=== PATIENT | female | born 1950 | race African-American/Black ===

== ENCOUNTER 2020-12-02 15:42 | Inpatient (IN) | payer OTHER ==
[2020-12-02 17:18] LABS: BASO % 0.4 % (0-2.0); EOS % 0.4 % (0-4.5); HEMOGLOBIN 11.4 GM/dL (10.7-15.3); MCH 30.6 pg (25.7-33.7); MCHC 33.6 g/dl (32.0-36.0); MEAN CELL VOLUME 91.1 fl (80-96); MEAN PLT VOLUME 8.1 fl (7.5-11.1); MONO % 11.6 % (3.8-10.2); NEUT % 65.6 % (42.8-82.8); PLATELET COUNT 376 K/MM3 (134-434); RBC 3.74 M/mm3 (3.60-5.2); RDW 13.9 % (11.6-15.6); WHITE BLOOD COUNT 7.4 K/mm3 (4.0-10.0)
[2020-12-02 17:49] LABS: ALBUMIN 2.9 g/dl (3.4-5.0); BLOOD UREA NITROGEN 25.6 mg/dL (7-18)
[2020-12-02 17:52] LABS: EPI CELLS 34 /uL (0-25.1); HYALINE CASTS 1 /uL (0-3.1); PH,URINE 5.5 (5.0-8.0); URINE APPEARANCE CLOUDY; URINE BACTERIA >9,000 /uL (0-1359); URINE BILIRUBIN NEGATIVE (NEGATIVE); URINE COLOR YELLOW; URINE GLUCOSE (UA) NEGATIVE (NEGATIVE); URINE KETONE TRACE (NEGATIVE); URINE LEUK ESTERASE 1+ (NEGATIVE); URINE NITRITE NEGATIVE (NEGATIVE); URINE PROTEIN TRACE (NEGATIVE); URINE WBC 12 /uL (0-25.8)
[2020-12-02 17:54] LABS: BILIRUBIN,TOTAL 0.5 mg/dL (0.2-1); TOT PROT 6.6 g/dl (6.4-8.2)
[2020-12-02] MEDS ORDERED: CEFTRIAXONE 1,000 MG in DEXTROSE 5%-WATER - 50 ML IVPB ONE (18:05)
[2020-12-02] MEDS ORDERED: CEFTRIAXONE 1 GM/50 ML BAG ONE (18:25)
[2020-12-03 08:09] LABS: BASO % 0.7 % (0-2.0); EOS % 1.5 % (0-4.5); HEMATOCRIT 34.2 % (32.4-45.2); HEMOGLOBIN 11.2 GM/dL (10.7-15.3); LYMPH % 29.6 % (8-40); MCH 29.9 pg (25.7-33.7); MCHC 32.7 g/dl (32.0-36.0); MEAN CELL VOLUME 91.6 fl (80-96); MEAN PLT VOLUME 7.9 fl (7.5-11.1); MONO % 11.3 % (3.8-10.2); NEUT % 56.9 % (42.8-82.8); PLATELET COUNT 372 K/MM3 (134-434); RBC 3.73 M/mm3 (3.60-5.2); RDW 13.6 % (11.6-15.6); WHITE BLOOD COUNT 6.2 K/mm3 (4.0-10.0)
[2020-12-03 08:25] LABS: CALCIUM 10.2 mg/dL (8.5-10.1)
[2020-12-03 08:27] LABS: ALBUMIN 2.9 g/dl (3.4-5.0); BLOOD UREA NITROGEN 18.9 mg/dL (7-18)
[2020-12-03 08:29] LABS: BILIRUBIN,TOTAL 0.6 mg/dL (0.2-1); TOT PROT 6.5 g/dl (6.4-8.2)
[2020-12-03 08:30] LABS: CREATININE 0.7 mg/dL (0.55-1.3)
[2020-12-03] MEDS ORDERED: ESCITALOPRAM OXALATE 10 MG TABLET PO SCH (10:00)
[2020-12-03] MEDS ORDERED: CEFTRIAXONE 1 GM in DEXTROSE 5%-WATER - 50 ML IVPB SCH (10:00)
[2020-12-03] MEDS ORDERED: cefTRIAXone SODIUM 1 GM VIAL ONE (10:30)
[2020-12-03] MEDS ORDERED: DEXTROSE 5%-WATER - 50 ML IVPB ONE (10:30)
[2020-12-03] MEDS ORDERED: ASPIRIN 81 MG CHEWABLE TABLETS PO SCH (11:45)
[2020-12-03] MEDS: hydrALAZINE HCL 50 MG TABLET (FP) PO SCH ×2 (13:59→21:44)
[2020-12-03] MEDS: DEXTROSE 5%-0.45% SALINE 1,000 ML IV SCH ×2 (20:43→20:44)
[2020-12-03] MEDS ORDERED: LABETALOL HCL 200 MG TABLET (FP) PO SCH (22:00)
[2020-12-03] MEDS ORDERED: ATORVASTATIN CA 40 MG TABLET (FP) PO SCH (22:00)
[2020-12-04] MEDS ORDERED: DEXTROSE 5%-0.45% SALINE 1,000 ML IV SCH (01:44)
[2020-12-04] MEDS: hydrALAZINE HCL 50 MG TABLET (FP) PO SCH ×3 (05:30→21:51)
[2020-12-04] MEDS ORDERED: PATIENT'S OWN MEDICATION (NON-FORMULARY) (Hydralazine Hcl [Hydralazine Hcl] 100 MG) PO SCH (06:00)
[2020-12-04 06:28] LABS: BASO % 0.4 % (0-2.0); HEMATOCRIT 35.1 % (32.4-45.2); HEMOGLOBIN 11.7 GM/dL (10.7-15.3); LYMPH % 27.1 % (8-40); MCH 30.6 pg (25.7-33.7); MCHC 33.4 g/dl (32.0-36.0); MEAN CELL VOLUME 91.6 fl (80-96); MEAN PLT VOLUME 7.9 fl (7.5-11.1); MONO % 11.1 % (3.8-10.2); NEUT % 60.4 % (42.8-82.8); PLATELET COUNT 363 K/MM3 (134-434); RBC 3.84 M/mm3 (3.60-5.2); RDW 13.7 % (11.6-15.6); WHITE BLOOD COUNT 6.7 K/mm3 (4.0-10.0)
[2020-12-04 06:45] LABS: ALBUMIN 2.8 g/dl (3.4-5.0); BLOOD UREA NITROGEN 18.8 mg/dL (7-18); CALCIUM 10.1 mg/dL (8.5-10.1)
[2020-12-04 06:48] LABS: CREATININE 0.6 mg/dL (0.55-1.3)
[2020-12-04 06:50] LABS: BILIRUBIN,TOTAL 0.6 mg/dL (0.2-1); TOT PROT 6.4 g/dl (6.4-8.2)
[2020-12-04] MEDS ORDERED: METOPROLOL TARTRATE 5 MG/5 ML VIAL IVPUSH PRN (09:30)
[2020-12-04] MEDS ORDERED: PATIENT'S OWN MEDICATION (NON-FORMULARY) (Losartan Potassium [Cozaar] 100 MG) PO SCH (10:00)
[2020-12-04] MEDS ORDERED: LOSARTAN POTASSIUM 50 MG TABLET PO SCH (10:00)
[2020-12-04] MEDS: ASPIRIN 81 MG CHEWABLE TABLETS PO SCH (10:03)
[2020-12-04] MEDS: LOSARTAN POTASSIUM 50 MG TABLET PO SCH (10:04)
[2020-12-04] MEDS: LABETALOL HCL 200 MG TABLET (FP) PO SCH ×2 (10:04→21:52)
[2020-12-04] MEDS: ESCITALOPRAM OXALATE 10 MG TABLET PO SCH (10:04)
[2020-12-04] MEDS ORDERED: cefTRIAXone SODIUM 1 GM VIAL ONE (10:05)
[2020-12-04] MEDS ORDERED: DEXTROSE 5%-WATER - 50 ML IVPB ONE (10:06)
[2020-12-04] MEDS: CEFTRIAXONE 1 GM in DEXTROSE 5%-WATER - 50 ML IVPB SCH (10:13)
[2020-12-04] MEDS: DEXTROSE 5%-0.45% SALINE 1,000 ML IV SCH (12:45)
[2020-12-04] MEDS: VANCOMYCIN 1 GRAM (PRE-DOCKED) 1,000 MG/250 ML BAG IVPB SCH (14:11)
[2020-12-04] MEDS ORDERED: hydrALAZINE HCL 20 MG/ML VIAL IVPB PRN (14:43)
[2020-12-04] MEDS: ATORVASTATIN CA 40 MG TABLET (FP) PO SCH (21:52)
[2020-12-05] MEDS: VANCOMYCIN 1 GRAM (PRE-DOCKED) 1,000 MG/250 ML BAG IVPB SCH (01:12)
[2020-12-05] MEDS: DEXTROSE 5%-0.45% SALINE 1,000 ML IV SCH ×2 (01:14→18:20)
[2020-12-05] MEDS: hydrALAZINE HCL 50 MG TABLET (FP) PO SCH ×3 (05:46→21:33)
[2020-12-05 06:48] LABS: BASO % 0.7 % (0-2.0); EOS % 1.3 % (0-4.5); HEMATOCRIT 31.4 % (32.4-45.2); HEMOGLOBIN 10.6 GM/dL (10.7-15.3); LYMPH % 35.5 % (8-40); MCH 30.8 pg (25.7-33.7); MCHC 33.9 g/dl (32.0-36.0); MEAN CELL VOLUME 90.9 fl (80-96); MEAN PLT VOLUME 7.9 fl (7.5-11.1); MONO % 9.5 % (3.8-10.2); PLATELET COUNT 379 K/MM3 (134-434); RBC 3.46 M/mm3 (3.60-5.2); RDW 13.4 % (11.6-15.6); WHITE BLOOD COUNT 5.7 K/mm3 (4.0-10.0)
[2020-12-05 07:08] LABS: CALCIUM 9.4 mg/dL (8.5-10.1)
[2020-12-05 07:09] LABS: ALBUMIN 2.5 g/dl (3.4-5.0); BLOOD UREA NITROGEN 16.5 mg/dL (7-18)
[2020-12-05 07:12] LABS: CREATININE 0.7 mg/dL (0.55-1.3)
[2020-12-05 07:13] LABS: BILIRUBIN,TOTAL 0.4 mg/dL (0.2-1); TOT PROT 5.8 g/dl (6.4-8.2)
[2020-12-05] MEDS ORDERED: cefTRIAXone SODIUM 1 GM VIAL ONE (09:52)
[2020-12-05] MEDS ORDERED: DEXTROSE 5%-WATER - 50 ML IVPB ONE (09:52)
[2020-12-05] MEDS: CEFTRIAXONE 1 GM in DEXTROSE 5%-WATER - 50 ML IVPB SCH (10:21)
[2020-12-05] MEDS: LOSARTAN POTASSIUM 50 MG TABLET PO SCH (10:29)
[2020-12-05] MEDS: LABETALOL HCL 200 MG TABLET (FP) PO SCH ×2 (10:30→21:33)
[2020-12-05] MEDS: ESCITALOPRAM OXALATE 10 MG TABLET PO SCH (10:30)
[2020-12-05] MEDS: ASPIRIN 81 MG CHEWABLE TABLETS PO SCH (10:30)
[2020-12-05 16:29] VITALS: BMI 21.1
[2020-12-05] MEDS: ATORVASTATIN CA 40 MG TABLET (FP) PO SCH (21:33)
[2020-12-06] MEDS: hydrALAZINE HCL 50 MG TABLET (FP) PO SCH ×3 (06:14→21:11)
[2020-12-06] MEDS ORDERED: DEXTROSE 5%-WATER - 50 ML IVPB ONE (09:10)
[2020-12-06] MEDS ORDERED: cefTRIAXone SODIUM 1 GM VIAL ONE (09:10)
[2020-12-06] MEDS: CEFTRIAXONE 1 GM in DEXTROSE 5%-WATER - 50 ML IVPB SCH (10:24)
[2020-12-06] MEDS: LOSARTAN POTASSIUM 50 MG TABLET PO SCH (10:24)
[2020-12-06] MEDS: ESCITALOPRAM OXALATE 10 MG TABLET PO SCH (10:25)
[2020-12-06] MEDS: ASPIRIN 81 MG CHEWABLE TABLETS PO SCH (10:25)
[2020-12-06] MEDS: LABETALOL HCL 200 MG TABLET (FP) PO SCH ×2 (10:25→21:12)
[2020-12-06] MEDS: DEXTROSE 5%-0.45% SALINE 1,000 ML IV SCH (13:45)
[2020-12-06] MEDS: CLOPIDOGREL BISULFATE 75 MG TABLET (FP) PO SCH (17:57)
[2020-12-06] MEDS: ATORVASTATIN CA 40 MG TABLET (FP) PO SCH (21:12)
[2020-12-07] MEDS: DEXTROSE 5%-0.45% SALINE 1,000 ML IV SCH (03:04)
[2020-12-07] MEDS: hydrALAZINE HCL 50 MG TABLET (FP) PO SCH ×2 (05:32→13:52)
[2020-12-07] MEDS ORDERED: PT OWN MED DRAWER 7, Y5N ONE (09:55)
[2020-12-07] MEDS: ESCITALOPRAM OXALATE 10 MG TABLET PO SCH (09:57)
[2020-12-07] MEDS: LABETALOL HCL 200 MG TABLET (FP) PO SCH (09:57)
[2020-12-07] MEDS: CLOPIDOGREL BISULFATE 75 MG TABLET (FP) PO SCH (09:57)
[2020-12-07] MEDS: LOSARTAN POTASSIUM 50 MG TABLET PO SCH (09:57)
[2020-12-07] MEDS: ASPIRIN 81 MG CHEWABLE TABLETS PO SCH (09:58)
[2020-12-07] MEDS: CEPHALEXIN 250 MG/5 ML ORAL SUSPENSION PO SCH (10:05)
[2020-12-07] MEDS: hydrALAZINE HCL 20 MG/ML VIAL IVPB PRN (23:32)
[2020-12-08] MEDS: hydrALAZINE HCL 50 MG TABLET (FP) PO SCH ×4 (00:09→21:53)
[2020-12-08] MEDS: ATORVASTATIN CA 40 MG TABLET (FP) PO SCH ×2 (00:10→21:53)
[2020-12-08] MEDS: CEPHALEXIN 250 MG/5 ML ORAL SUSPENSION PO SCH ×3 (00:10→21:54)
[2020-12-08] MEDS: LABETALOL HCL 200 MG TABLET (FP) PO SCH ×3 (00:10→21:53)
[2020-12-08] MEDS: hydrALAZINE HCL 20 MG/ML VIAL IVPB PRN ×2 (06:16→13:32)
[2020-12-08] MEDS ORDERED: PT OWN MED DRAWER 7, Y5N ONE ×2 (09:26→21:14)
[2020-12-08] MEDS: LOSARTAN POTASSIUM 50 MG TABLET PO SCH (10:52)
[2020-12-08] MEDS: CLOPIDOGREL BISULFATE 75 MG TABLET (FP) PO SCH (10:52)
[2020-12-08] MEDS: ESCITALOPRAM OXALATE 10 MG TABLET PO SCH (10:52)
[2020-12-08] MEDS: ASPIRIN 81 MG CHEWABLE TABLETS PO SCH (10:53)
[2020-12-08 11:16] LABS: BASO % 0.7 % (0-2.0); EOS % 1.1 % (0-4.5); HEMATOCRIT 31.6 % (32.4-45.2); HEMOGLOBIN 10.6 GM/dL (10.7-15.3); MCH 30.6 pg (25.7-33.7); MCHC 33.5 g/dl (32.0-36.0); MEAN CELL VOLUME 91.2 fl (80-96); MEAN PLT VOLUME 7.2 fl (7.5-11.1); MONO % 8.4 % (3.8-10.2); NEUT % 60.8 % (42.8-82.8); PLATELET COUNT 422 K/MM3 (134-434); RBC 3.47 M/mm3 (3.60-5.2); RDW 13.3 % (11.6-15.6); WHITE BLOOD COUNT 6.1 K/mm3 (4.0-10.0)
[2020-12-08 11:36] LABS: ALBUMIN 2.5 g/dl (3.4-5.0); BLOOD UREA NITROGEN 12.6 mg/dL (7-18); CALCIUM 9.6 mg/dL (8.5-10.1)
[2020-12-08 11:39] LABS: CREATININE 0.6 mg/dL (0.55-1.3)
[2020-12-08 11:41] LABS: BILIRUBIN,TOTAL 0.4 mg/dL (0.2-1); TOT PROT 5.9 g/dl (6.4-8.2)
[2020-12-09] MEDS: hydrALAZINE HCL 50 MG TABLET (FP) PO SCH ×2 (05:14→14:47)
[2020-12-09] MEDS: ESCITALOPRAM OXALATE 10 MG TABLET PO SCH (09:06)
[2020-12-09] MEDS: LOSARTAN POTASSIUM 50 MG TABLET PO SCH (09:06)
[2020-12-09] MEDS: LABETALOL HCL 200 MG TABLET (FP) PO SCH (09:06)
[2020-12-09] MEDS: ASPIRIN 81 MG CHEWABLE TABLETS PO SCH (09:06)
[2020-12-09] MEDS: CLOPIDOGREL BISULFATE 75 MG TABLET (FP) PO SCH (09:06)
[2020-12-09] MEDS ORDERED: PT OWN MED DRAWER 7, Y5N ONE (09:10)
[2020-12-09] MEDS: CEPHALEXIN 250 MG/5 ML ORAL SUSPENSION PO SCH (09:12)
[2020-12-09] MEDS ORDERED: amLODIPine BESYLATE 2.5 MG TABLET (FP) PO SCH (10:00)
[2020-12-09 10:08] LABS: SARS-CoV-2 NAA Not Detected (Not Detected)
[2020-12-09 14:35] VITALS: BP 106/65; PULSE 79; TEMP 98.9
== END 2020-12-09 17:57 | DRG 45 ==
LOC: JER 15:42 → JERBED 19:17 → J8W 22:22 → J4S 12-04 01:15
PROVIDERS: ADMIT Internal Medicine; ATTEND Family Medicine
DX: I63.421 Cerebral infarction due to embolism of right anterior cerebral artery (principal); G93.41 Metabolic encephalopathy; N39.0 Urinary tract infection, site not specified; G30.9 Alzheimer's disease, unspecified; F02.80 Dementia in other diseases classified elsewhere, unspecified severity, without behavioral disturbance, psychotic disturbance, mood disturbance, and anxiety; I69.354 Hemiplegia and hemiparesis following cerebral infarction affecting left non-dominant side; E87.5 Hyperkalemia; E11.9 Type 2 diabetes mellitus without complications; D64.9 Anemia, unspecified; E78.5 Hyperlipidemia, unspecified; I10 Essential (primary) hypertension; Z20.822 Contact with and (suspected) exposure to COVID-19; R13.10 Dysphagia, unspecified; Z86.14 Personal history of Methicillin resistant Staphylococcus aureus infection
CPT/HCPCS: 36415; 70450-TC; 70551-TC; 71045-TC-FY; 80053; 80061; 81003; 82962; 83036; 83605; 83721; 83735; 84439; 84443; 84484; 85025; 87040; 87081; 87086; 93005; 93010; 93306-TC; 97161-GP; 99285-25; C9803; U0003; U0005

== ENCOUNTER 2021-02-13 18:53 | Inpatient (IN) | payer OTHER ==
[2021-02-13 22:12] LABS: BASO % 0.5 % (0-2.0); EOS % 0.4 % (0-4.5); HEMATOCRIT 32.6 % (32.4-45.2); HEMOGLOBIN 10.7 GM/dL (10.7-15.3); LYMPH % 14.4 % (8-40); MCH 28.9 pg (25.7-33.7); MCHC 32.8 g/dl (32.0-36.0); MEAN CELL VOLUME 88.2 fl (80-96); MEAN PLT VOLUME 7.9 fl (7.5-11.1); NEUT % 79.7 % (42.8-82.8); PLATELET COUNT 657 10^3/uL (134-434); RDW 15.4 % (11.6-15.6); WHITE BLOOD COUNT 11.6 K/mm3 (4.0-10.0)
[2021-02-13 22:20] LABS: INR 1.24 (0.83-1.09); PROTHROMBIN TIME (PATIENT) 14.9 SEC (9.7-13.0)
[2021-02-13 22:32] LABS: CALCIUM 8.8 mg/dL (8.5-10.1)
[2021-02-13 22:33] LABS: ALBUMIN 1.8 g/dl (3.4-5.0); BLOOD UREA NITROGEN 18.3 mg/dL (7-18)
[2021-02-13 22:36] LABS: CREATININE 0.6 mg/dL (0.55-1.3)
[2021-02-13 22:37] LABS: BILIRUBIN,TOTAL 0.4 mg/dL (0.2-1); TOT PROT 6.1 g/dl (6.4-8.2)
[2021-02-13] MEDS ORDERED: LABETALOL HCL 5 MG/1 ML (100MG/20 ML VIAL) IVPUSH ONE (22:51)
[2021-02-13] MEDS ORDERED: KCL 10 MEQ IVPB 10 MEQ/100 ML INFUS.BAG IVPB SCH (23:00)
[2021-02-13] MEDS ORDERED: KCL 10 MEQ IVPB 10 MEQ/100 ML INFUS.BAG IVPB ONE (23:01)
[2021-02-13] MEDS ORDERED: LABETALOL HCL 5 MG/1 ML (100MG/20 ML VIAL) ONE (23:01)
[2021-02-14] MEDS ORDERED: LOSARTAN POTASSIUM 50 MG TABLET PO SCH (11:00)
[2021-02-14] MEDS: amLODIPine BESYLATE 2.5 MG TABLET (FP) PO SCH (11:50)
[2021-02-14] MEDS: hydrALAZINE HCL 25 MG TABLET (FP) PO SCH ×2 (11:50→21:16)
[2021-02-14 12:03] LABS: ALBUMIN 1.8 g/dl (3.4-5.0); CALCIUM 8.9 mg/dL (8.5-10.1)
[2021-02-14 12:04] LABS: BLOOD UREA NITROGEN 21.2 mg/dL (7-18)
[2021-02-14 12:07] LABS: CREATININE 0.8 mg/dL (0.55-1.3)
[2021-02-14 12:08] LABS: BILIRUBIN,TOTAL 0.4 mg/dL (0.2-1); TOT PROT 5.8 g/dl (6.4-8.2)
[2021-02-14 13:06] LABS: EPI CELLS 5 /uL (0-25.1); HYALINE CASTS 11 /uL (0-3.1); URINE APPEARANCE TURBID; URINE BACTERIA >9,000 /uL (0-1359); URINE BILIRUBIN NEGATIVE (NEGATIVE); URINE COLOR YELLOW; URINE GLUCOSE (UA) NEGATIVE (NEGATIVE); URINE KETONE 1+ (NEGATIVE); URINE LEUK ESTERASE 3+ (NEGATIVE); URINE NITRITE POSITIVE (NEGATIVE); URINE PROTEIN 1+ (NEGATIVE); URINE RBC 65 /uL (0-23.9); URINE WBC 4256 /uL (0-25.8)
[2021-02-14] MEDS ORDERED: hydrALAZINE HCL 25 MG TABLET (FP) ONE (13:16)
[2021-02-14] MEDS ORDERED: amLODIPine BESYLATE 2.5 MG TABLET (FP) ONE (13:16)
[2021-02-14] MEDS ORDERED: LOSARTAN POTASSIUM 50 MG TABLET ONE (13:17)
[2021-02-14] MEDS: LOSARTAN POTASSIUM 50 MG TABLET PO SCH (13:34)
[2021-02-14] MEDS ORDERED: AMINO ACIDS 4.25%/D5W 1,000 ML IV SCH (14:00)
[2021-02-14] MEDS ORDERED: METOPROLOL TARTRATE 5 MG/5 ML VIAL IVPUSH PRN ×2 (16:36→16:38)
[2021-02-14] MEDS: POTASSIUM CHLORIDE 20 MEQ in AMINO ACIDS 4.25%/D5W 1,000 ML IV SCH (17:34)
[2021-02-14] MEDS ORDERED: METOPROLOL TARTRATE 5 MG/5 ML VIAL ONE (21:17)
[2021-02-15 09:43] LABS: BASO % 0.3 % (0-2.0); EOS % 0.6 % (0-4.5); HEMATOCRIT 28.6 % (32.4-45.2); HEMOGLOBIN 9.5 GM/dL (10.7-15.3); LYMPH % 15.6 % (8-40); MCH 28.9 pg (25.7-33.7); MCHC 33.2 g/dl (32.0-36.0); MEAN CELL VOLUME 86.9 fl (80-96); MEAN PLT VOLUME 7.7 fl (7.5-11.1); MONO % 7.2 % (3.8-10.2); NEUT % 76.3 % (42.8-82.8); PLATELET COUNT 581 10^3/uL (134-434); RBC 3.29 M/mm3 (3.60-5.2); RDW 14.8 % (11.6-15.6); WHITE BLOOD COUNT 10.8 K/mm3 (4.0-10.0)
[2021-02-15 10:07] LABS: CALCIUM 8.8 mg/dL (8.5-10.1)
[2021-02-15 10:10] LABS: CREATININE 0.7 mg/dL (0.55-1.3); MAGNESIUM 1.4 mg/dL (1.8-2.4); PHOSPHOROUS 2.4 mg/dL (2.5-4.9)
[2021-02-15] MEDS: amLODIPine BESYLATE 2.5 MG TABLET (FP) PO SCH (10:11)
[2021-02-15] MEDS: hydrALAZINE HCL 25 MG TABLET (FP) PO SCH ×2 (10:11→21:22)
[2021-02-15] MEDS: LOSARTAN POTASSIUM 50 MG TABLET PO SCH (10:11)
[2021-02-15] MEDS ORDERED: MAGNESIUM SULF 50% (8.12 MEQ/2 ML-1 GM VIAL) IVPB ONE (11:43)
[2021-02-15] MEDS ORDERED: POTASSIUM PHOSPHATE 30 MM in SODIUM CHLORIDE 500 ML IVPB ONE (13:00)
[2021-02-15 16:00] VITALS: BMI 18.6
[2021-02-15] MEDS: POTASSIUM CHLORIDE 20 MEQ in AMINO ACIDS 4.25%/D5W 1,000 ML IV SCH (16:12)
[2021-02-16 09:26] LABS: HEMATOCRIT 26.2 % (32.4-45.2); HEMOGLOBIN 8.7 GM/dL (10.7-15.3); MCH 29.2 pg (25.7-33.7); MCHC 33.3 g/dl (32.0-36.0); MEAN CELL VOLUME 87.7 fl (80-96); MEAN PLT VOLUME 7.7 fl (7.5-11.1); PLATELET COUNT 483 10^3/uL (134-434); RBC 2.99 M/mm3 (3.60-5.2); RDW 15.2 % (11.6-15.6); WHITE BLOOD COUNT 8.8 K/mm3 (4.0-10.0)
[2021-02-16 09:53] LABS: CALCIUM 8.7 mg/dL (8.5-10.1)
[2021-02-16 09:54] LABS: BLOOD UREA NITROGEN 22.7 mg/dL (7-18); MAGNESIUM 1.7 mg/dL (1.8-2.4)
[2021-02-16 09:57] LABS: CREATININE 0.5 mg/dL (0.55-1.3); PHOSPHOROUS 2.6 mg/dL (2.5-4.9)
[2021-02-16] MEDS: LOSARTAN POTASSIUM 50 MG TABLET PO SCH (09:59)
[2021-02-16] MEDS: amLODIPine BESYLATE 2.5 MG TABLET (FP) PO SCH (09:59)
[2021-02-16] MEDS: hydrALAZINE HCL 25 MG TABLET (FP) PO SCH ×2 (09:59→21:12)
[2021-02-16 10:01] LABS: IRON SERUM 19 ug/dL (50-175); TOTAL IRON BINDING CAPACITY 106 ug/dL (250-450)
[2021-02-16] MEDS ORDERED: PT OWN MED DRAWER 7, Y5N ONE (14:00)
[2021-02-16] MEDS: POTASSIUM CHLORIDE 20 MEQ in AMINO ACIDS 4.25%/D5W 1,000 ML IV SCH ×3 (14:07→18:18)
[2021-02-16] MEDS ORDERED: MAGNESIUM SULF 50% (8.12 MEQ/2 ML-1 GM VIAL) IVPB ONE (16:52)
[2021-02-16] MEDS ORDERED: IRON SUCROSE INJECTION 300 MG in SODIUM CHLORIDE 235 ML IVPB ONE (18:56)
[2021-02-17] MEDS: METOPROLOL TARTRATE 5 MG/5 ML VIAL IVPB PRN (10:14)
[2021-02-17] MEDS: LOSARTAN POTASSIUM 50 MG TABLET PO SCH (10:22)
[2021-02-17] MEDS: amLODIPine BESYLATE 2.5 MG TABLET (FP) PO SCH (10:22)
[2021-02-17] MEDS: hydrALAZINE HCL 25 MG TABLET (FP) PO SCH ×2 (10:22→21:32)
[2021-02-17 10:33] LABS: CALCIUM 8.6 mg/dL (8.5-10.1)
[2021-02-17 10:34] LABS: ALBUMIN 1.5 g/dl (3.4-5.0); BLOOD UREA NITROGEN 21.6 mg/dL (7-18); MAGNESIUM 2.1 mg/dL (1.8-2.4)
[2021-02-17 10:38] LABS: PHOSPHOROUS 2.1 mg/dL (2.5-4.9)
[2021-02-17 10:39] LABS: BILIRUBIN,TOTAL 0.3 mg/dL (0.2-1)
[2021-02-17 10:45] LABS: CREATININE 0.7 mg/dL (0.55-1.3)
[2021-02-17] MEDS: NAPH,MB-DB/K PH,MBDB POWDER PACKET PO SCH (13:10)
[2021-02-17] MEDS ORDERED: SODIUM PHOSPHATE - 20 MM in DEXTROSE 5%-WATER - 250 ML IVPB ONE (14:42)
[2021-02-17] MEDS: POTASSIUM CHLORIDE 20 MEQ in AMINO ACIDS 4.25%/D5W 1,000 ML IV SCH (18:16)
[2021-02-17] MEDS: NYSTATIN 100,000 UNIT/GM TOPICAL CREAM 15 GM TUBE TP SCH (21:33)
[2021-02-17] MEDS: hydrALAZINE HCL 20 MG/ML VIAL IM PRN (21:52)
[2021-02-18] MEDS: POTASSIUM CHLORIDE 20 MEQ in AMINO ACIDS 4.25%/D5W 1,000 ML IV SCH ×3 (04:41→17:42)
[2021-02-18] MEDS: hydrALAZINE HCL 20 MG/ML VIAL IM PRN (06:44)
[2021-02-18] MEDS: hydrALAZINE HCL 25 MG TABLET (FP) PO SCH ×2 (10:04→21:08)
[2021-02-18] MEDS: LOSARTAN POTASSIUM 50 MG TABLET PO SCH (10:04)
[2021-02-18] MEDS: amLODIPine BESYLATE 2.5 MG TABLET (FP) PO SCH (10:05)
[2021-02-18] MEDS: NAPH,MB-DB/K PH,MBDB POWDER PACKET PO SCH (10:05)
[2021-02-18] MEDS: NYSTATIN 100,000 UNIT/GM TOPICAL CREAM 15 GM TUBE TP SCH ×2 (10:05→21:12)
[2021-02-18] MEDS ORDERED: PT OWN MED DRAWER 7, Y5N ONE (16:51)
[2021-02-18] MEDS ORDERED: FAT EMULSION/OLIVE/SOY (CLINOLIPID) 250 ML EMULSION IV SCH (22:00)
[2021-02-19] MEDS: NAPH,MB-DB/K PH,MBDB POWDER PACKET PO SCH (10:24)
[2021-02-19] MEDS: amLODIPine BESYLATE 2.5 MG TABLET (FP) PO SCH (10:24)
[2021-02-19] MEDS: LOSARTAN POTASSIUM 50 MG TABLET PO SCH (10:24)
[2021-02-19] MEDS: NYSTATIN 100,000 UNIT/GM TOPICAL CREAM 15 GM TUBE TP SCH ×2 (10:24→21:22)
[2021-02-19] MEDS: hydrALAZINE HCL 25 MG TABLET (FP) PO SCH ×2 (10:24→21:22)
[2021-02-19 15:06] LABS: CALCIUM 8.9 mg/dL (8.5-10.1)
[2021-02-19 15:07] LABS: MAGNESIUM 1.5 mg/dL (1.8-2.4)
[2021-02-19 15:08] LABS: ALBUMIN 1.6 g/dl (3.4-5.0); BLOOD UREA NITROGEN 21.4 mg/dL (7-18)
[2021-02-19 15:10] LABS: CREATININE 0.4 mg/dL (0.55-1.3)
[2021-02-19 15:11] LABS: PHOSPHOROUS 2.1 mg/dL (2.5-4.9)
[2021-02-19 15:12] LABS: TOT PROT 5.5 g/dl (6.4-8.2)
[2021-02-19 15:13] LABS: BILIRUBIN,TOTAL 0.3 mg/dL (0.2-1)
[2021-02-19] MEDS ORDERED: MAGNESIUM SULF 50% (8.12 MEQ/2 ML-1 GM VIAL) IVPB ONE (15:51)
[2021-02-19] MEDS: POTASSIUM CHLORIDE 20 MEQ in AMINO ACIDS 4.25%/D5W 1,000 ML IV SCH (18:11)
[2021-02-20] MEDS ORDERED: PT OWN MED DRAWER 7, Y5N ONE (09:35)
[2021-02-20] MEDS: LOSARTAN POTASSIUM 50 MG TABLET PO SCH (09:44)
[2021-02-20] MEDS: hydrALAZINE HCL 25 MG TABLET (FP) PO SCH ×2 (09:44→21:07)
[2021-02-20] MEDS: NAPH,MB-DB/K PH,MBDB POWDER PACKET PO SCH (09:44)
[2021-02-20] MEDS: amLODIPine BESYLATE 2.5 MG TABLET (FP) PO SCH (09:44)
[2021-02-20] MEDS: METOPROLOL TARTRATE 5 MG/5 ML VIAL IVPB PRN (10:46)
[2021-02-20] MEDS: NYSTATIN 100,000 UNIT/GM TOPICAL CREAM 15 GM TUBE TP SCH ×2 (10:46→21:08)
[2021-02-20] MEDS ORDERED: GLUCAGON 1 MG KIT IVPUSH ONE (14:18)
[2021-02-20] MEDS ORDERED: GlUCAGON HUMAN RECOMBINANT 1 MG/VIAL IVPUSH ONE (14:45)
[2021-02-20] MEDS ORDERED: LABETALOL HCL 5 MG/1 ML (100MG/20 ML VIAL) IVPUSH ONE ×3 (14:45)
[2021-02-20] MEDS: POTASSIUM CHLORIDE 20 MEQ in AMINO ACIDS 4.25%/D5W 1,000 ML IV SCH (17:38)
[2021-02-20] MEDS: LABETALOL HCL 5 MG/1 ML (100MG/20 ML VIAL) IVPUSH SCH ×2 (19:51→19:52)
[2021-02-20] MEDS: POTASSIUM CHLORIDE 10 MEQ in AMINO ACIDS 4.25%/D5W 1,000 ML IVPB SCH (21:22)
[2021-02-20] MEDS ORDERED: FAT EMULSION/OLIVE/SOY/PHOSPHO 250 ML IV SCH (22:00)
[2021-02-20] MEDS ORDERED: FAT EMULSION/OLIVE/SOY (CLINOLIPID) 250 ML EMULSION IV SCH (22:00)
[2021-02-21] MEDS ORDERED: PT OWN MED DRAWER 7, Y5N ONE (10:12)
[2021-02-21 10:17] LABS: ALBUMIN 1.7 g/dl (3.4-5.0); BLOOD UREA NITROGEN 20.4 mg/dL (7-18); MAGNESIUM 1.6 mg/dL (1.8-2.4)
[2021-02-21 10:22] LABS: BILIRUBIN,TOTAL 0.3 mg/dL (0.2-1); TOT PROT 5.8 g/dl (6.4-8.2)
[2021-02-21] MEDS: NYSTATIN 100,000 UNIT/GM TOPICAL CREAM 15 GM TUBE TP SCH ×2 (10:32→21:12)
[2021-02-21] MEDS: amLODIPine BESYLATE 2.5 MG TABLET (FP) PO SCH (10:33)
[2021-02-21] MEDS: LOSARTAN POTASSIUM 50 MG TABLET PO SCH (10:33)
[2021-02-21] MEDS: POTASSIUM CHLORIDE 10 MEQ in AMINO ACIDS 4.25%/D5W 1,000 ML IVPB SCH ×2 (10:33→16:36)
[2021-02-21] MEDS: NAPH,MB-DB/K PH,MBDB POWDER PACKET PO SCH (10:33)
[2021-02-21] MEDS: hydrALAZINE HCL 25 MG TABLET (FP) PO SCH ×2 (10:33→21:12)
[2021-02-21 10:54] LABS: CREATININE 0.4 mg/dL (0.55-1.3)
[2021-02-21] MEDS ORDERED: LABETALOL HCL 5 MG/1 ML (100MG/20 ML VIAL) IVPUSH SCH (13:45)
[2021-02-22] MEDS: POTASSIUM CHLORIDE 10 MEQ in AMINO ACIDS 4.25%/D5W 1,000 ML IVPB SCH (01:13)
[2021-02-22 09:25] LABS: BASO % 0.2 % (0-2.0); EOS % 0.4 % (0-4.5); HEMATOCRIT 25.9 % (32.4-45.2); HEMOGLOBIN 8.8 GM/dL (10.7-15.3); LYMPH % 12.4 % (8-40); MCH 29.3 pg (25.7-33.7); MCHC 33.9 g/dl (32.0-36.0); MEAN CELL VOLUME 86.4 fl (80-96); MEAN PLT VOLUME 7.7 fl (7.5-11.1); MONO % 8.9 % (3.8-10.2); NEUT % 78.1 % (42.8-82.8); PLATELET COUNT 461 10^3/uL (134-434); RBC 2.99 M/mm3 (3.60-5.2); RDW 15.4 % (11.6-15.6); WHITE BLOOD COUNT 9.1 K/mm3 (4.0-10.0)
[2021-02-22 09:55] LABS: CREATININE 0.4 mg/dL (0.55-1.3)
[2021-02-22 09:57] LABS: ALBUMIN 1.6 g/dl (3.4-5.0); BLOOD UREA NITROGEN 22.4 mg/dL (7-18); CALCIUM 9.1 mg/dL (8.5-10.1)
[2021-02-22 09:58] LABS: MAGNESIUM 1.5 mg/dL (1.8-2.4)
[2021-02-22 10:01] LABS: BILIRUBIN,TOTAL 0.4 mg/dL (0.2-1); TOT PROT 5.5 g/dl (6.4-8.2)
[2021-02-22] MEDS: LOSARTAN POTASSIUM 50 MG TABLET PO SCH (10:14)
[2021-02-22] MEDS: amLODIPine BESYLATE 2.5 MG TABLET (FP) PO SCH (10:15)
[2021-02-22] MEDS: hydrALAZINE HCL 25 MG TABLET (FP) PO SCH ×2 (10:15→21:15)
[2021-02-22] MEDS: NAPH,MB-DB/K PH,MBDB POWDER PACKET PO SCH (10:15)
[2021-02-22] MEDS: NYSTATIN 100,000 UNIT/GM TOPICAL CREAM 15 GM TUBE TP SCH ×2 (10:15→21:16)
[2021-02-22] MEDS ORDERED: MAGNESIUM SULF 50% (8.12 MEQ/2 ML-1 GM VIAL) IVPB ONE (12:13)
[2021-02-22] MEDS ORDERED: MAGNESIUM OXIDE 400 MG TABLET (FP) PO ONE (13:15)
[2021-02-22 23:10] VITALS: BP 132/81; PULSE 105; TEMP 97.9
== END 2021-02-23 05:18 | DRG 421 ==
LOC: JER 18:53 → JERBED 22:55 → J8W 02-14 21:43
PROVIDERS: ADMIT Internal Medicine; ATTEND Family Medicine
PROC: 0DH63UZ Insertion of Feeding Device into Stomach, Percutaneous Approach (ICD-10-PCS; principal; 2021-02-20)
PROC: 3E0G36Z Introduction of Nutritional Substance into Upper GI, Percutaneous Approach (ICD-10-PCS; 2021-02-20)
PROC: 3E0336Z Introduction of Nutritional Substance into Peripheral Vein, Percutaneous Approach (ICD-10-PCS; 2021-02-20)
DX: R62.7 Adult failure to thrive (principal); G30.9 Alzheimer's disease, unspecified; Z68.1 Body mass index [BMI] 19.9 or less, adult; E87.6 Hypokalemia; R13.10 Dysphagia, unspecified; R53.2 Functional quadriplegia; E86.0 Dehydration; E43 Unspecified severe protein-calorie malnutrition; E46 Unspecified protein-calorie malnutrition; F02.80 Dementia in other diseases classified elsewhere, unspecified severity, without behavioral disturbance, psychotic disturbance, mood disturbance, and anxiety; I10 Essential (primary) hypertension; E11.9 Type 2 diabetes mellitus without complications; D72.829 Elevated white blood cell count, unspecified; E78.5 Hyperlipidemia, unspecified; I69.354 Hemiplegia and hemiparesis following cerebral infarction affecting left non-dominant side
CPT/HCPCS: 36415; 49440; 71045-TC-FY; 71250-TC; 74018-TC-FY; 74150-TC; 80048; 80053; 80061; 81003; 83540; 83550; 83735; 84100; 85025; 85027; 85610; 85730; 87086; 87186; 93005; 93010; 99285-25; C9803; J1756; U0003; U0005

== ENCOUNTER 2021-08-06 12:19 | Inpatient (IN) | payer OTHER ==
[2021-08-06] MEDS ORDERED: KETAMINE HCL 200 MG/20 ML VIAL ONE (12:30)
[2021-08-06] MEDS ORDERED: RAPID SEQUENCE INTUBATION KIT NR ONE (12:33)
[2021-08-06] MEDS ORDERED: SODIUM CHLORIDE 0.9% 500 ML INFUS.BAG IV ONE (12:37)
[2021-08-06] MEDS ORDERED: ACETAMINOPHEN 1000 MG/100 ML BAG IVPB ONE (12:38)
[2021-08-06] MEDS ORDERED: VANCOMYCIN 1 GM in D5W (PRE-DOCKED) 1,000 MG/250 ML IVPB ONE (12:38)
[2021-08-06] MEDS ORDERED: CEFEPIME HCL/D5W 2 GM/50 ML BAG IVPB ONE (12:38)
[2021-08-06 12:57] LABS: VENOUS BASE EXCESS 4.1 mmol/L (-2-2); VENOUS O2 SATURATION 47.1 % (70-80); VENOUS PCO2 58.4 mmHg (38-52); VENOUS PH 7.341 (7.310-7.410)
[2021-08-06 13:04] LABS: BASO % 0.4 % (0-2.0); EOS % 0.1 % (0-4.5); HEMATOCRIT 32.9 % (32.4-45.2); HEMOGLOBIN 9.7 GM/dL (10.7-15.3); LYMPH % 16.3 % (8-40); MCH 29.5 pg (25.7-33.7); MCHC 29.4 g/dl (32.0-36.0); MEAN CELL VOLUME 100.3 fl (80-96); MEAN PLT VOLUME 13.2 fl (7.5-11.1); MONO % 5.8 % (3.8-10.2); NEUT % 77.4 % (42.8-82.8); PLATELET COUNT 241 10^3/uL (134-434); RBC 3.28 M/mm3 (3.60-5.2); RDW 17.3 % (11.6-15.6); WHITE BLOOD COUNT 11.9 K/mm3 (4.0-10.0)
[2021-08-06] MEDS ORDERED: NOREPINEPHRINE BITARTRATE 4 MG/4 ML ML IV ONE ×2 (13:04→13:16)
[2021-08-06] MEDS ORDERED: ACETAMINOPHEN INJECTION 100 ML IVPB ONE (13:06)
[2021-08-06] MEDS ORDERED: AZITHROMYCIN IVPB 500 MG in DEXTROSE 5%-WATER - 250 ML IVPB ONE (13:08)
[2021-08-06 13:21] LABS: CHLORIDE 140 mmol/L (98-107)
[2021-08-06] MEDS: NOREPINEPHRINE BITARTRATE 16,000 MCG in SODIUM CHLORIDE 484 ML IV SCH (13:24)
[2021-08-06 13:25] LABS: ALBUMIN 1.9 g/dl (3.4-5.0); BLOOD UREA NITROGEN 101.6 mg/dL (7-18); CO2 33 mmol/L (21-32)
[2021-08-06] MEDS ORDERED: INSULIN REGULAR HUMAN 100 UNITS/ML *VIAL IVPUSH ONE (13:25)
[2021-08-06 13:28] LABS: SGOT/AST 30 U/L (15-37); SGPT/ALT 25 U/L (13-61)
[2021-08-06] MEDS ORDERED: DEXTROSE 50%-WATER - 25 GM/50 ML VIAL IVPUSH PRN (13:28)
[2021-08-06 13:29] LABS: BILIRUBIN,TOTAL 0.2 mg/dL (0.2-1); TOT PROT 6.4 g/dl (6.4-8.2)
[2021-08-06] MEDS ORDERED: SODIUM CHLORIDE 0.9%/KCL 20 MEQ/1,000 ML INFUS.BAG IV SCH ×2 (13:30→19:30)
[2021-08-06] MEDS ORDERED: INSULIN REGULAR 100 UNITS in SODIUM CHLORIDE 99 ML IVPB SCH (13:30)
[2021-08-06 13:31] LABS: ALK PHOS 176 U/L (45-117)
[2021-08-06] MEDS ORDERED: CEFEPIME 2 GM/100 ML BAG IVPB ONE (13:32)
[2021-08-06] MEDS ORDERED: VANCOMYCIN 1 GRAM (PRE-DOCKED) 1,000 MG/250 ML BAG IVPB ONE (13:32)
[2021-08-06] MEDS ORDERED: AZITHROMYCIN IVPB 500 MG/250 ML BAG IVPB ONE (13:32)
[2021-08-06 13:54] LABS: ANION GAP 0 MMOL/L (8-16); SODIUM 173 mmol/L (136-145)
[2021-08-06 14:03] LABS: GLUCOSE,RANDOM 875 mg/dL (74-106)
[2021-08-06 14:26] LABS: EPI CELLS >36 /uL (0-25.1); HYALINE CASTS 1578 /uL (0-3.1); PH,URINE 7.5 (5.0-8.0); URINE APPEARANCE TURBID; URINE BACTERIA >9,000 /uL (0-1359); URINE BILIRUBIN NEGATIVE (NEGATIVE); URINE COLOR YELLOW; URINE GLUCOSE (UA) TRACE (NEGATIVE); URINE KETONE TRACE (NEGATIVE); URINE LEUK ESTERASE 3+ (NEGATIVE); URINE NITRITE NEGATIVE (NEGATIVE); URINE PROTEIN 2+ (NEGATIVE); URINE UROBILINOGEN 0.2 mg/dL (0.2-1.0); URINE WBC 23613 /uL (0-25.8)
[2021-08-06 15:31] LABS: CHLORIDE 135 mmol/L (98-107)
[2021-08-06 15:33] LABS: BLOOD UREA NITROGEN 96.4 mg/dL (7-18); CALCIUM 8.8 mg/dL (8.5-10.1); CO2 32 mmol/L (21-32)
[2021-08-06 15:36] LABS: CREATININE 1.9 mg/dL (0.55-1.3)
[2021-08-06 15:56] LABS: LACTIC ACID 3.1 mmol/L (0.4-2.0)
[2021-08-06 16:03] LABS: ANION GAP 0 MMOL/L (8-16); GLUCOSE,RANDOM 823 mg/dL (74-106); SODIUM 167 mmol/L (136-145)
[2021-08-06 16:15] LABS: ARTERIAL BLD GAS O2 SATURATION 96.7 % (95-98); ARTERIAL BLOOD GAS BASE EXCESS -1.1 mmol/L (-2-2)
[2021-08-06 16:25] LABS: CHLORIDE 137 mmol/L (98-107)
[2021-08-06 16:26] LABS: CALCIUM 9.6 mg/dL (8.5-10.1)
[2021-08-06 16:28] LABS: CO2 28 mmol/L (21-32)
[2021-08-06 16:30] LABS: CREATININE 2.1 mg/dL (0.55-1.3)
[2021-08-06 16:39] LABS: ANION GAP 3 MMOL/L (8-16); GLUCOSE,RANDOM 773 mg/dL (74-106); SODIUM 168 mmol/L (136-145)
[2021-08-06] MEDS ORDERED: MIDAZOLAM IN 0.9 % SOD.CHLORID 1 MG/1 ML PLAST..BAG ONE (16:54)
[2021-08-06] MEDS: MIDAZOLAM IN 0.9 % SOD.CHLORID 100 MG/100 ML PLAST..BAG IVPB SCH (16:58)
[2021-08-06 17:39] LABS: YEAST NONE SEEN (NEGATIVE)
[2021-08-06 17:40] LABS: URINE RBC 62.2 /uL (0-23.9)
[2021-08-06] MEDS ORDERED: VASOPRESSIN 20 UNITS/ML VIAL IV ONE (17:51)
[2021-08-06] MEDS: VASOPRESSIN 40 UNITS/100 ML BAG IV SCH (17:57)
[2021-08-06] MEDS: FENTANYL NS IVPB 500 MCG/100 ML BAG IVPB SCH (18:28)
[2021-08-06 18:54] LABS: CHLORIDE 138 mmol/L (98-107)
[2021-08-06 18:55] LABS: CALCIUM 9.6 mg/dL (8.5-10.1)
[2021-08-06 18:56] LABS: BLOOD UREA NITROGEN 95.4 mg/dL (7-18); CO2 27 mmol/L (21-32)
[2021-08-06 19:13] LABS: ANION GAP 4 MMOL/L (8-16); GLUCOSE,RANDOM 602 mg/dL (74-106); SODIUM 169 mmol/L (136-145)
[2021-08-06 19:19] LABS: LACTIC ACID 4.7 mmol/L (0.4-2.0)
[2021-08-06] MEDS ORDERED: PIPERACILLIN/TAZOB 3.375 GM 3.375 GM in DEXTROSE 5%-WATER - 50 ML IVPB SCH (22:00)
[2021-08-06] MEDS: CHLORHEXIDINE GLUCONATE 4% CLEANSER FOR DECOLONIZATION TP SCH (22:30)
[2021-08-06] MEDS: MUPIROCIN 2% TOPICAL OINTMENT FOR DECOLONIZATION NS SCH (23:10)
[2021-08-07] MEDS ORDERED: PIPERACILLIN/TAZOBACTAM 3.375 GM VIAL IVPB ONE ×3 (00:44→18:38)
[2021-08-07] MEDS ORDERED: DEXTROSE 5%-WATER - 50 ML IVPB ONE ×3 (00:45→18:38)
[2021-08-07 00:56] LABS: CHLORIDE 142 mmol/L (98-107)
[2021-08-07 00:57] LABS: CALCIUM 9.1 mg/dL (8.5-10.1); CO2 28 mmol/L (21-32)
[2021-08-07 00:59] LABS: GLUCOSE,RANDOM 299 mg/dL (74-106)
[2021-08-07] MEDS ORDERED: D5-NS + 20 MEQ KCL - 20 MEQ/1,000 ML INFUS.BAG IV SCH ×2 (01:00→07:00)
[2021-08-07 01:02] LABS: CREATININE 1.7 mg/dL (0.55-1.3)
[2021-08-07] MEDS: HEPARIN NA (PORCINE) 5,000 UNITS/ML 1ML VIAL SQ SCH ×4 (01:10→22:16)
[2021-08-07] MEDS: PIPERACILLIN/TAZOB 3.375 GM 3.375 GM in DEXTROSE 5%-WATER - 50 ML IVPB SCH ×5 (01:12→18:00)
[2021-08-07 01:14] LABS: ANION GAP 1 MMOL/L (8-16); SODIUM 171 mmol/L (136-145)
[2021-08-07] MEDS ORDERED: D5-1/2NS+20 MEQ KCL - 20 MEQ/1,000 ML INFUS.BAG IV SCH (01:30)
[2021-08-07] MEDS: PROPOFOL 1,000,000 MCG/100 ML VIAL IVPB SCH ×2 (03:01→22:17)
[2021-08-07 03:15] LABS: CHLORIDE 143 mmol/L (98-107)
[2021-08-07 03:18] LABS: BLOOD UREA NITROGEN 96.1 mg/dL (7-18); CALCIUM 8.9 mg/dL (8.5-10.1); CO2 29 mmol/L (21-32); GLUCOSE,RANDOM 254 mg/dL (74-106)
[2021-08-07 03:21] LABS: CREATININE 1.5 mg/dL (0.55-1.3)
[2021-08-07 03:23] LABS: ANION GAP 0 MMOL/L (8-16); SODIUM 172 mmol/L (136-145)
[2021-08-07] MEDS ORDERED: DEXTROSE 5%-WATER - 1,000 ML with POTASSIUM CHLORIDE 20 MEQ IV SCH (03:45)
[2021-08-07] MEDS: MIDAZOLAM IN 0.9 % SOD.CHLORID 100 MG/100 ML PLAST..BAG IVPB SCH ×2 (04:34→15:22)
[2021-08-07] MEDS: FENTANYL NS IVPB 500 MCG/100 ML BAG IVPB SCH ×2 (04:35→14:00)
[2021-08-07 07:34] LABS: HEMATOCRIT 27.8 % (32.4-45.2); HEMOGLOBIN 8.2 GM/dL (10.7-15.3); MCH 28.8 pg (25.7-33.7); MCHC 29.4 g/dl (32.0-36.0); MEAN PLT VOLUME 12.7 fl (7.5-11.1); PLATELET COUNT 137 10^3/uL (134-434); RBC 2.84 M/mm3 (3.60-5.2); RDW 16.3 % (11.6-15.6)
[2021-08-07 08:04] LABS: MAGNESIUM 2.5 mg/dL (1.8-2.4)
[2021-08-07 08:07] LABS: PHOSPHOROUS 1.9 mg/dL (2.5-4.9)
[2021-08-07] MEDS: MUPIROCIN 2% TOPICAL OINTMENT FOR DECOLONIZATION NS SCH ×2 (10:50→22:16)
[2021-08-07] MEDS: PANTOPRAZOLE 40 MG TABLET PO SCH (10:50)
[2021-08-07 11:00] LABS: CALCIUM 9.2 mg/dL (8.5-10.1); CHLORIDE 144 mmol/L (98-107)
[2021-08-07 11:01] LABS: BLOOD UREA NITROGEN 93.6 mg/dL (7-18); CO2 29 mmol/L (21-32); GLUCOSE,RANDOM 170 mg/dL (74-106)
[2021-08-07 11:04] LABS: CREATININE 1.5 mg/dL (0.55-1.3)
[2021-08-07 11:19] LABS: ANION GAP 2 MMOL/L (8-16); SODIUM 175 mmol/L (136-145)
[2021-08-07] MEDS ORDERED: FLU VACC QS2021-22(6MOS UP)/PF 60 MCG/0.5 ML SYRINGE IM ONE (12:00)
[2021-08-07] MEDS: INSULIN SLIDING SCALE (NOVOLOG) 1 VIAL SQ SCH ×3 (15:22→21:39)
[2021-08-07] MEDS: POTASSIUM CHLORIDE 20 MEQ in DEXTROSE 5%-WATER - 1,000 ML IV SCH (19:00)
[2021-08-07 20:56] LABS: CHLORIDE 138 mmol/L (98-107)
[2021-08-07 20:58] LABS: BLOOD UREA NITROGEN 82.3 mg/dL (7-18); CALCIUM 9.2 mg/dL (8.5-10.1); CO2 27 mmol/L (21-32); GLUCOSE,RANDOM 214 mg/dL (74-106)
[2021-08-07 21:01] LABS: CREATININE 1.4 mg/dL (0.55-1.3)
[2021-08-07 21:04] LABS: ANION GAP 2 MMOL/L (8-16); SODIUM 167 mmol/L (136-145)
[2021-08-07] MEDS: NOREPINEPHRINE BITARTRATE 16,000 MCG in SODIUM CHLORIDE 484 ML IV SCH (22:15)
[2021-08-07] MEDS: VASOPRESSIN 40 UNITS/100 ML BAG IV SCH (22:15)
[2021-08-07] MEDS: CHLORHEXIDINE GLUCONATE 4% CLEANSER FOR DECOLONIZATION TP SCH (22:16)
[2021-08-08] MEDS ORDERED: PIPERACILLIN/TAZOBACTAM 3.375 GM VIAL IVPB ONE ×3 (00:24→17:51)
[2021-08-08] MEDS ORDERED: DEXTROSE 5%-WATER - 50 ML IVPB ONE ×3 (00:24→17:52)
[2021-08-08 00:38] LABS: CHLORIDE 136 mmol/L (98-107)
[2021-08-08 00:39] LABS: CALCIUM 8.5 mg/dL (8.5-10.1); CO2 27 mmol/L (21-32)
[2021-08-08 00:40] LABS: BLOOD UREA NITROGEN 79.9 mg/dL (7-18); GLUCOSE,RANDOM 175 mg/dL (74-106)
[2021-08-08 00:43] LABS: CREATININE 1.2 mg/dL (0.55-1.3)
[2021-08-08 00:51] LABS: ANION GAP 2 MMOL/L (8-16); SODIUM 165 mmol/L (136-145)
[2021-08-08] MEDS: POTASSIUM CHLORIDE 20 MEQ in DEXTROSE 5%-WATER - 1,000 ML IV SCH (03:03)
[2021-08-08] MEDS: PIPERACILLIN/TAZOB 3.375 GM 3.375 GM in DEXTROSE 5%-WATER - 50 ML IVPB SCH ×3 (03:04→17:53)
[2021-08-08] MEDS: HEPARIN NA (PORCINE) 5,000 UNITS/ML 1ML VIAL SQ SCH ×3 (06:08→22:01)
[2021-08-08] MEDS: INSULIN SLIDING SCALE (NOVOLOG) 1 VIAL SQ SCH ×5 (06:14→22:12)
[2021-08-08 06:58] LABS: CHLORIDE 133 mmol/L (98-107)
[2021-08-08 07:00] LABS: CALCIUM 8.8 mg/dL (8.5-10.1); CO2 26 mmol/L (21-32)
[2021-08-08 07:01] LABS: BLOOD UREA NITROGEN 74.8 mg/dL (7-18); GLUCOSE,RANDOM 143 mg/dL (74-106)
[2021-08-08 07:03] LABS: SGPT/ALT 20 U/L (13-61)
[2021-08-08 07:04] LABS: CREATININE 1.2 mg/dL (0.55-1.3); SGOT/AST 22 U/L (15-37)
[2021-08-08 07:05] LABS: BILIRUBIN,TOTAL 0.2 mg/dL (0.2-1); TOT PROT 4.8 g/dl (6.4-8.2)
[2021-08-08 07:12] LABS: ALBUMIN 1.3 g/dl (3.4-5.0); ALK PHOS 102 U/L (45-117); ANION GAP 3 MMOL/L (8-16); SODIUM 162 mmol/L (136-145)
[2021-08-08 08:08] LABS: HEMATOCRIT 25.6 % (32.4-45.2); HEMOGLOBIN 7.7 GM/dL (10.7-15.3); MCH 29.2 pg (25.7-33.7); MCHC 30.1 g/dl (32.0-36.0); MEAN PLT VOLUME 12.7 fl (7.5-11.1); PLATELET COUNT 116 10^3/uL (134-434); RBC 2.64 M/mm3 (3.60-5.2); RDW 16.4 % (11.6-15.6); WHITE BLOOD COUNT 17.5 K/mm3 (4.0-10.0)
[2021-08-08] MEDS: MUPIROCIN 2% TOPICAL OINTMENT FOR DECOLONIZATION NS SCH ×2 (09:26→22:02)
[2021-08-08 11:26] LABS: ANISOCYTOSIS 0; HELMET CELLS 0; HOWELL-JOLLY BODIES 0; MACROCYTOSIS 0; OVALOCYTE 0; PLATELET ESTIMATE DECREASED; ROULEAU 0; SICKELED CELLS 0; TARGET CELLS 0; TEAR DROP CELLS 0; TOXIC GRANULATION 0
[2021-08-08] MEDS: PANTOPRAZOLE 40 MG TABLET PO SCH (11:43)
[2021-08-08] MEDS: FENTANYL NS IVPB 500 MCG/100 ML BAG IVPB SCH (14:44)
[2021-08-08] MEDS: AMINO ACIDS/PROTEIN HYDROLYS 30 ML LIQUID.PKT PEG SCH (17:53)
[2021-08-08 19:29] LABS: BLOOD UREA NITROGEN 62.7 mg/dL (7-18); CALCIUM 8.8 mg/dL (8.5-10.1)
[2021-08-08] MEDS: CHLORHEXIDINE GLUCONATE 4% CLEANSER FOR DECOLONIZATION TP SCH (22:02)
[2021-08-08] MEDS ORDERED: INSULIN SLIDING SCALE (NOVOLOG) 1 VIAL SQ SCH (22:20)
[2021-08-09] MEDS ORDERED: PIPERACILLIN/TAZOBACTAM 3.375 GM VIAL IVPB ONE ×3 (01:01→16:43)
[2021-08-09] MEDS ORDERED: DEXTROSE 5%-WATER - 50 ML IVPB ONE ×3 (01:02→16:43)
[2021-08-09] MEDS: POTASSIUM CHLORIDE 20 MEQ in DEXTROSE 5%-WATER - 1,000 ML IV SCH ×2 (01:55→02:04)
[2021-08-09] MEDS: NOREPINEPHRINE BITARTRATE 16,000 MCG in SODIUM CHLORIDE 484 ML IV SCH ×2 (01:57→14:43)
[2021-08-09] MEDS: MIDAZOLAM IN 0.9 % SOD.CHLORID 100 MG/100 ML PLAST..BAG IVPB SCH ×2 (02:00→14:43)
[2021-08-09] MEDS: PIPERACILLIN/TAZOB 3.375 GM 3.375 GM in DEXTROSE 5%-WATER - 50 ML IVPB SCH ×3 (02:02→17:45)
[2021-08-09] MEDS: VASOPRESSIN 40 UNITS/100 ML BAG IV SCH ×2 (02:02→18:11)
[2021-08-09] MEDS: PROPOFOL 1,000,000 MCG/100 ML VIAL IVPB SCH ×2 (02:02→22:30)
[2021-08-09] MEDS: INSULIN SLIDING SCALE (NOVOLOG) 1 VIAL SQ SCH ×6 (02:03→22:18)
[2021-08-09] MEDS: FENTANYL NS IVPB 500 MCG/100 ML BAG IVPB SCH ×3 (02:05→14:44)
[2021-08-09 02:32] LABS: BLOOD UREA NITROGEN 60.3 mg/dL (7-18); CALCIUM 8.6 mg/dL (8.5-10.1)
[2021-08-09 02:36] LABS: CREATININE 0.9 mg/dL (0.55-1.3)
[2021-08-09] MEDS: HEPARIN NA (PORCINE) 5,000 UNITS/ML 1ML VIAL SQ SCH ×3 (05:34→22:10)
[2021-08-09 07:28] LABS: HEMATOCRIT 24.8 % (32.4-45.2); HEMOGLOBIN 7.6 GM/dL (10.7-15.3); MCH 29.5 pg (25.7-33.7); MCHC 30.6 g/dl (32.0-36.0); MEAN CELL VOLUME 96.4 fl (80-96); MEAN PLT VOLUME 12.2 fl (7.5-11.1); PLATELET COUNT 133 10^3/uL (134-434); RBC 2.57 M/mm3 (3.60-5.2); RDW 15.6 % (11.6-15.6); WHITE BLOOD COUNT 20.8 K/mm3 (4.0-10.0)
[2021-08-09 07:55] LABS: ALBUMIN 1.2 g/dl (3.4-5.0); BLOOD UREA NITROGEN 59.4 mg/dL (7-18); MAGNESIUM 2.2 mg/dL (1.8-2.4)
[2021-08-09 07:57] LABS: PHOSPHOROUS 3.9 mg/dL (2.5-4.9)
[2021-08-09 07:58] LABS: CREATININE 0.9 mg/dL (0.55-1.3)
[2021-08-09 07:59] LABS: BILIRUBIN,TOTAL 0.3 mg/dL (0.2-1); TOT PROT 4.7 g/dl (6.4-8.2)
[2021-08-09] MEDS ORDERED: AMINO ACIDS/PROTEIN HYDROLYS 30 ML LIQUID.PKT PEG SCH (08:00)
[2021-08-09 09:54] LABS: ANISOCYTOSIS 1+; MACROCYTOSIS 0; PLATELET ESTIMATE DECREASED
[2021-08-09] MEDS ORDERED: INSULIN SLIDING SCALE (NOVOLOG) 1 VIAL SQ SCH (10:00)
[2021-08-09] MEDS ORDERED: ASCORBIC ACID 500 MG TABLET (FP) PEG SCH (10:00)
[2021-08-09] MEDS: ASCORBIC ACID 500 MG TABLET (FP) PEG SCH (10:03)
[2021-08-09] MEDS: MUPIROCIN 2% TOPICAL OINTMENT FOR DECOLONIZATION NS SCH ×2 (10:03→22:11)
[2021-08-09] MEDS: AMINO ACIDS/PROTEIN HYDROLYS 30 ML LIQUID.PKT PEG SCH ×3 (10:03→17:45)
[2021-08-09] MEDS: PANTOPRAZOLE 40 MG TABLET PO SCH (10:04)
[2021-08-09] MEDS: PANTOPRAZOLE SODIUM 40 MG VIAL IVPUSH SCH (17:45)
[2021-08-09] MEDS ORDERED: ACETAMINOPHEN 1000 MG/100 ML BAG IVPB PRN (20:38)
[2021-08-09] MEDS: CHLORHEXIDINE GLUCONATE 4% CLEANSER FOR DECOLONIZATION TP SCH (22:12)
[2021-08-10] MEDS ORDERED: PIPERACILLIN/TAZOBACTAM 3.375 GM VIAL IVPB ONE ×2 (00:55→10:38)
[2021-08-10] MEDS ORDERED: DEXTROSE 5%-WATER - 50 ML IVPB ONE ×2 (00:55→10:38)
[2021-08-10] MEDS: FENTANYL NS IVPB 500 MCG/100 ML BAG IVPB SCH ×4 (00:57→22:13)
[2021-08-10] MEDS: PIPERACILLIN/TAZOB 3.375 GM 3.375 GM in DEXTROSE 5%-WATER - 50 ML IVPB SCH ×3 (01:02→17:36)
[2021-08-10] MEDS: INSULIN SLIDING SCALE (NOVOLOG) 1 VIAL SQ SCH ×6 (03:18→22:11)
[2021-08-10] MEDS: HEPARIN NA (PORCINE) 5,000 UNITS/ML 1ML VIAL SQ SCH ×3 (05:54→22:12)
[2021-08-10 06:58] LABS: HEMATOCRIT 22.5 % (32.4-45.2); MCH 29.8 pg (25.7-33.7); MEAN CELL VOLUME 96.4 fl (80-96); MEAN PLT VOLUME 11.4 fl (7.5-11.1); PLATELET COUNT 133 10^3/uL (134-434); RBC 2.33 M/mm3 (3.60-5.2)
[2021-08-10 07:28] LABS: CHLORIDE 130 mmol/L (98-107); SODIUM 157 mmol/L (136-145)
[2021-08-10 07:34] LABS: ALBUMIN 1.1 g/dl (3.4-5.0); ANION GAP 2 MMOL/L (8-16); BLOOD UREA NITROGEN 72.5 mg/dL (7-18); CALCIUM 8.7 mg/dL (8.5-10.1); CO2 25 mmol/L (21-32); GLUCOSE,RANDOM 156 mg/dL (74-106)
[2021-08-10 07:37] LABS: CREATININE 1.2 mg/dL (0.55-1.3); SGOT/AST 26 U/L (15-37); SGPT/ALT 24 U/L (13-61)
[2021-08-10 07:39] LABS: BILIRUBIN,TOTAL 0.4 mg/dL (0.2-1); TOT PROT 4.6 g/dl (6.4-8.2)
[2021-08-10 07:40] LABS: ALK PHOS 175 U/L (45-117)
[2021-08-10] MEDS: AMINO ACIDS/PROTEIN HYDROLYS 30 ML LIQUID.PKT PEG SCH ×3 (08:30→17:36)
[2021-08-10 09:30] LABS: ANISOCYTOSIS 0; HELMET CELLS 0; HOWELL-JOLLY BODIES 0; MACROCYTOSIS 0; OVALOCYTE 0; PLATELET ESTIMATE NORMAL; ROULEAU 0; SICKELED CELLS 0; TARGET CELLS 0; TEAR DROP CELLS 0; TOXIC GRANULATION 0
[2021-08-10] MEDS: PANTOPRAZOLE SODIUM 40 MG VIAL IVPUSH SCH (11:02)
[2021-08-10] MEDS: ASCORBIC ACID 500 MG TABLET (FP) PEG SCH (11:02)
[2021-08-10] MEDS: MUPIROCIN 2% TOPICAL OINTMENT FOR DECOLONIZATION NS SCH ×2 (11:03→22:12)
[2021-08-10] MEDS ORDERED: VANCOMYCIN 1 GRAM (PRE-DOCKED) 1,000 MG/250 ML BAG IVPB ONE (11:30)
[2021-08-10] MEDS: NOREPINEPHRINE BITARTRATE 16,000 MCG in SODIUM CHLORIDE 484 ML IV SCH (16:06)
[2021-08-10] MEDS: MIDAZOLAM IN 0.9 % SOD.CHLORID 100 MG/100 ML PLAST..BAG IVPB SCH (22:11)
[2021-08-10] MEDS: VASOPRESSIN 40 UNITS/100 ML BAG IV SCH (22:11)
[2021-08-10] MEDS: CHLORHEXIDINE GLUCONATE 4% CLEANSER FOR DECOLONIZATION TP SCH (22:11)
[2021-08-10] MEDS: PROPOFOL 1,000,000 MCG/100 ML VIAL IVPB SCH (23:45)
[2021-08-11] MEDS: INSULIN SLIDING SCALE (NOVOLOG) 1 VIAL SQ SCH ×7 (02:07→21:51)
[2021-08-11] MEDS ORDERED: PIPERACILLIN/TAZOBACTAM 3.375 GM VIAL IVPB ONE ×3 (02:08→18:01)
[2021-08-11] MEDS ORDERED: DEXTROSE 5%-WATER - 50 ML IVPB ONE ×3 (02:08→18:01)
[2021-08-11] MEDS: PIPERACILLIN/TAZOB 3.375 GM 3.375 GM in DEXTROSE 5%-WATER - 50 ML IVPB SCH ×3 (02:11→18:05)
[2021-08-11] MEDS: HEPARIN NA (PORCINE) 5,000 UNITS/ML 1ML VIAL SQ SCH ×3 (05:53→21:56)
[2021-08-11 07:20] LABS: BASO % 0.2 % (0-2.0); EOS % 0.7 % (0-4.5); HEMATOCRIT 21.9 % (32.4-45.2); LYMPH % 6.9 % (8-40); MCH 29.6 pg (25.7-33.7); MEAN CELL VOLUME 95.4 fl (80-96); MEAN PLT VOLUME 10.7 fl (7.5-11.1); MONO % 7.4 % (3.8-10.2); NEUT % 84.8 % (42.8-82.8); PLATELET COUNT 171 10^3/uL (134-434); RDW 15.7 % (11.6-15.6); WHITE BLOOD COUNT 12.4 K/mm3 (4.0-10.0)
[2021-08-11 07:23] LABS: HEMOGLOBIN 6.8 GM/dL (10.7-15.3)
[2021-08-11 07:33] LABS: CALCIUM 8.9 mg/dL (8.5-10.1)
[2021-08-11 07:34] LABS: BLOOD UREA NITROGEN 66.8 mg/dL (7-18)
[2021-08-11 07:37] LABS: CREATININE 1.1 mg/dL (0.55-1.3)
[2021-08-11] MEDS: AMINO ACIDS/PROTEIN HYDROLYS 30 ML LIQUID.PKT PEG SCH ×3 (08:45→18:30)
[2021-08-11] MEDS: PANTOPRAZOLE SODIUM 40 MG VIAL IVPUSH SCH (09:07)
[2021-08-11] MEDS: MUPIROCIN 2% TOPICAL OINTMENT FOR DECOLONIZATION NS SCH (09:08)
[2021-08-11] MEDS: ASCORBIC ACID 500 MG TABLET (FP) PEG SCH (09:08)
[2021-08-11 11:22] LABS: ANISOCYTOSIS 1+; MACROCYTOSIS 1+; PLATELET ESTIMATE NORMAL; TOXIC GRANULATION 2+
[2021-08-11] MEDS: POTASSIUM CHLORIDE 20 MEQ in DEXTROSE 5%-WATER - 1,000 ML IV SCH (11:29)
[2021-08-11] MEDS: FENTANYL NS IVPB 500 MCG/100 ML BAG IVPB SCH ×2 (11:30→18:50)
[2021-08-11] MEDS: MIDAZOLAM IN 0.9 % SOD.CHLORID 100 MG/100 ML PLAST..BAG IVPB SCH (14:28)
[2021-08-11 17:24] LABS: BASO % 0.1 % (0-2.0); EOS % 1.2 % (0-4.5); HEMATOCRIT 23.6 % (32.4-45.2); HEMOGLOBIN 7.6 GM/dL (10.7-15.3); LYMPH % 7.3 % (8-40); MCH 29.9 pg (25.7-33.7); MCHC 32.2 g/dl (32.0-36.0); MEAN CELL VOLUME 92.6 fl (80-96); MEAN PLT VOLUME 10.7 fl (7.5-11.1); MONO % 6.7 % (3.8-10.2); NEUT % 84.7 % (42.8-82.8); PLATELET COUNT 169 10^3/uL (134-434); RBC 2.55 M/mm3 (3.60-5.2); RDW 15.3 % (11.6-15.6); WHITE BLOOD COUNT 10.5 K/mm3 (4.0-10.0)
[2021-08-11 17:40] LABS: CALCIUM 8.7 mg/dL (8.5-10.1)
[2021-08-11 17:41] LABS: BLOOD UREA NITROGEN 68.7 mg/dL (7-18)
[2021-08-11 17:44] LABS: CREATININE 1.1 mg/dL (0.55-1.3)
[2021-08-11 17:55] LABS: ANISOCYTOSIS 3+; MACROCYTOSIS 0; PLATELET ESTIMATE NORMAL; TARGET CELLS 1+
[2021-08-11] MEDS: VANCOMYCIN 1 GRAM (PRE-DOCKED) 1,000 MG/250 ML BAG IVPB SCH (18:06)
[2021-08-11] MEDS: VASOPRESSIN 40 UNITS/100 ML BAG IV SCH (18:30)
[2021-08-11] MEDS: NOREPINEPHRINE BITARTRATE 16,000 MCG in SODIUM CHLORIDE 484 ML IV SCH (21:03)
[2021-08-11] MEDS: PROPOFOL 1,000,000 MCG/100 ML VIAL IVPB SCH (21:04)
[2021-08-11] MEDS: CHLORHEXIDINE GLUCONATE 4% CLEANSER FOR DECOLONIZATION TP SCH (21:56)
[2021-08-11] MEDS: POTASSIUM CHLORIDE 20 MEQ PREMIX IVPB 100 ML IVPB SCH (23:29)
[2021-08-12] MEDS ORDERED: DEXTROSE 5%-WATER - 50 ML IVPB ONE ×3 (01:43→15:18)
[2021-08-12] MEDS ORDERED: PIPERACILLIN/TAZOBACTAM 3.375 GM VIAL IVPB ONE ×3 (01:43→15:18)
[2021-08-12] MEDS: PIPERACILLIN/TAZOB 3.375 GM 3.375 GM in DEXTROSE 5%-WATER - 50 ML IVPB SCH ×2 (02:07→09:03)
[2021-08-12] MEDS: FENTANYL NS IVPB 500 MCG/100 ML BAG IVPB SCH ×4 (02:08→22:05)
[2021-08-12] MEDS: INSULIN SLIDING SCALE (NOVOLOG) 1 VIAL SQ SCH ×6 (02:08→21:57)
[2021-08-12] MEDS: POTASSIUM CHLORIDE 20 MEQ PREMIX IVPB 100 ML IVPB SCH (02:30)
[2021-08-12] MEDS: HEPARIN NA (PORCINE) 5,000 UNITS/ML 1ML VIAL SQ SCH ×3 (06:23→21:56)
[2021-08-12 07:17] LABS: HEMATOCRIT 23.5 % (32.4-45.2); HEMOGLOBIN 7.5 GM/dL (10.7-15.3); MCH 29.6 pg (25.7-33.7); MCHC 31.8 g/dl (32.0-36.0); MEAN CELL VOLUME 93.3 fl (80-96); PLATELET COUNT 187 10^3/uL (134-434); RBC 2.52 M/mm3 (3.60-5.2); RDW 16.2 % (11.6-15.6); WHITE BLOOD COUNT 9.3 K/mm3 (4.0-10.0)
[2021-08-12 07:21] LABS: BLOOD UREA NITROGEN 60.2 mg/dL (7-18); CALCIUM 8.1 mg/dL (8.5-10.1)
[2021-08-12] MEDS: AMINO ACIDS/PROTEIN HYDROLYS 30 ML LIQUID.PKT PEG SCH ×2 (08:30→17:06)
[2021-08-12] MEDS: PROPOFOL 1,000,000 MCG/100 ML VIAL IVPB SCH ×2 (08:30→17:06)
[2021-08-12] MEDS: ASCORBIC ACID 500 MG TABLET (FP) PEG SCH (09:04)
[2021-08-12] MEDS: PANTOPRAZOLE SODIUM 40 MG VIAL IVPUSH SCH (09:04)
[2021-08-12 10:09] LABS: ANISOCYTOSIS 1+; MACROCYTOSIS 0; PLATELET ESTIMATE NORMAL; TOXIC GRANULATION 2+
[2021-08-12] MEDS: DEXTROSE 5%-WATER - 1,000 ML IV SCH (10:24)
[2021-08-12] MEDS: NOREPINEPHRINE BITARTRATE 16,000 MCG in SODIUM CHLORIDE 484 ML IV SCH (13:47)
[2021-08-12] MEDS: MIDAZOLAM IN 0.9 % SOD.CHLORID 100 MG/100 ML PLAST..BAG IVPB SCH (15:24)
[2021-08-12] MEDS: VANCOMYCIN 1 GRAM (PRE-DOCKED) 1,000 MG/250 ML BAG IVPB SCH (16:50)
[2021-08-12] MEDS ORDERED: ceFAZolin SODIUM 1 GM VIAL ONE (16:53)
[2021-08-12] MEDS ORDERED: DEXTROSE 5%-WATER 100 ML IVPB ONE (16:53)
[2021-08-12] MEDS: CEFAZOLIN 2 GM in DEXTROSE 5%-WATER 100 ML IVPB SCH (17:05)
[2021-08-12] MEDS ORDERED: ACETAMINOPHEN 325 MG TABLET (FP) PO PRN (20:09)
[2021-08-12] MEDS ORDERED: ACETAMINOPHEN 650 MG/20.3 ML ORAL SOLUTION (CUPS) GT PRN (20:25)
[2021-08-12] MEDS ORDERED: ACETAMINOPHEN INJECTION 100 ML IVPB ONE (20:32)
[2021-08-12] MEDS: CHLORHEXIDINE GLUCONATE 4% CLEANSER FOR DECOLONIZATION TP SCH (22:35)
[2021-08-13] MEDS: INSULIN SLIDING SCALE (NOVOLOG) 1 VIAL SQ SCH ×6 (01:41→22:19)
[2021-08-13] MEDS: CEFAZOLIN 2 GM in DEXTROSE 5%-WATER 100 ML IVPB SCH ×3 (01:42→17:32)
[2021-08-13] MEDS: PROPOFOL 1,000,000 MCG/100 ML VIAL IVPB SCH ×3 (05:13→16:05)
[2021-08-13] MEDS: HEPARIN NA (PORCINE) 5,000 UNITS/ML 1ML VIAL SQ SCH ×2 (05:13→14:48)
[2021-08-13] MEDS: FENTANYL NS IVPB 500 MCG/100 ML BAG IVPB SCH ×3 (05:14→17:48)
[2021-08-13] MEDS: DEXTROSE 5%-WATER - 1,000 ML IV SCH (06:49)
[2021-08-13 07:27] LABS: HEMATOCRIT 24.9 % (32.4-45.2); HEMOGLOBIN 8.1 GM/dL (10.7-15.3); MCHC 32.5 g/dl (32.0-36.0); MEAN CELL VOLUME 92.4 fl (80-96); MEAN PLT VOLUME 10.2 fl (7.5-11.1); PLATELET COUNT 224 10^3/uL (134-434); RBC 2.69 M/mm3 (3.60-5.2)
[2021-08-13 07:47] LABS: BLOOD UREA NITROGEN 49.8 mg/dL (7-18)
[2021-08-13 07:51] LABS: CREATININE 0.9 mg/dL (0.55-1.3)
[2021-08-13] MEDS ORDERED: ceFAZolin SODIUM 1 GM VIAL ONE (08:42)
[2021-08-13] MEDS ORDERED: DEXTROSE 5%-WATER 100 ML IVPB ONE (08:42)
[2021-08-13] MEDS: PANTOPRAZOLE SODIUM 40 MG VIAL IVPUSH SCH (09:14)
[2021-08-13] MEDS: ASCORBIC ACID 500 MG TABLET (FP) PEG SCH (09:14)
[2021-08-13] MEDS: AMINO ACIDS/PROTEIN HYDROLYS 30 ML LIQUID.PKT PEG SCH ×2 (09:14→17:36)
[2021-08-13 11:12] LABS: ANISOCYTOSIS 1+; MACROCYTOSIS 0; PLATELET ESTIMATE NORMAL
[2021-08-13] MEDS: VANCOMYCIN 1 GRAM (PRE-DOCKED) 1,000 MG/250 ML BAG IVPB SCH (17:36)
[2021-08-13] MEDS: CHLORHEXIDINE GLUCONATE 4% CLEANSER FOR DECOLONIZATION TP SCH (22:18)
[2021-08-14] MEDS: CEFAZOLIN 2 GM in DEXTROSE 5%-WATER 100 ML IVPB SCH ×3 (02:35→18:14)
[2021-08-14] MEDS: DEXTROSE 5%-WATER - 1,000 ML IV SCH (02:51)
[2021-08-14] MEDS: INSULIN SLIDING SCALE (NOVOLOG) 1 VIAL SQ SCH ×6 (02:51→22:51)
[2021-08-14] MEDS: PROPOFOL 1,000,000 MCG/100 ML VIAL IVPB SCH ×2 (04:03→09:30)
[2021-08-14 07:56] LABS: MAGNESIUM 1.6 mg/dL (1.8-2.4)
[2021-08-14 08:00] LABS: PHOSPHOROUS 2.6 mg/dL (2.5-4.9)
[2021-08-14] MEDS: AMINO ACIDS/PROTEIN HYDROLYS 30 ML LIQUID.PKT PEG SCH ×2 (08:30→18:14)
[2021-08-14] MEDS: FENTANYL NS IVPB 500 MCG/100 ML BAG IVPB SCH (09:00)
[2021-08-14] MEDS: PANTOPRAZOLE SODIUM 40 MG VIAL IVPUSH SCH (09:48)
[2021-08-14] MEDS: ASCORBIC ACID 500 MG TABLET (FP) PEG SCH (09:51)
[2021-08-14 11:40] LABS: HEMATOCRIT 22.5 % (32.4-45.2); HEMOGLOBIN 7.1 GM/dL (10.7-15.3); MCHC 31.5 g/dl (32.0-36.0); MEAN CELL VOLUME 92.1 fl (80-96); MEAN PLT VOLUME 10.3 fl (7.5-11.1); PLATELET COUNT 275 10^3/uL (134-434); RBC 2.44 M/mm3 (3.60-5.2); RDW 15.6 % (11.6-15.6); WHITE BLOOD COUNT 12.2 K/mm3 (4.0-10.0)
[2021-08-14 11:42] LABS: BLOOD UREA NITROGEN 39.4 mg/dL (7-18); CALCIUM 8.6 mg/dL (8.5-10.1)
[2021-08-14 11:46] LABS: CREATININE 0.8 mg/dL (0.55-1.3)
[2021-08-14] MEDS ORDERED: MAGNESIUM 1GM/D5W - 1 GM/100 ML IVPB IVPB ONE (11:58)
[2021-08-14] MEDS ORDERED: POTASSIUM PHOSPHATE 30 MM in DEXTROSE 5%-WATER - 250 ML IVPB ONE (11:59)
[2021-08-14 12:27] LABS: ANISOCYTOSIS 1+; MACROCYTOSIS 1+; PLATELET ESTIMATE NORMAL
[2021-08-14] MEDS: ENOXAPARIN NA (PORCINE) 40 MG/0.4 ML DISP.SYRIN SQ SCH (12:50)
[2021-08-14] MEDS: SCOPOLAMINE HYDROBROMIDE 1 PATCH PATCH.TD72 TD SCH (12:51)
[2021-08-14 16:24] VITALS: BMI 21.8
[2021-08-14] MEDS ORDERED: ceFAZolin SODIUM 1 GM VIAL ONE ×2 (18:10→22:35)
[2021-08-14] MEDS ORDERED: DEXTROSE 5%-WATER 100 ML IVPB ONE ×2 (18:10→22:35)
[2021-08-14] MEDS: VANCOMYCIN 1 GRAM (PRE-DOCKED) 1,000 MG/250 ML BAG IVPB SCH (18:18)
[2021-08-14] MEDS: CHLORHEXIDINE GLUCONATE 4% CLEANSER FOR DECOLONIZATION TP SCH (22:49)
[2021-08-15] MEDS: DEXTROSE 5%-WATER - 1,000 ML IV SCH (01:26)
[2021-08-15] MEDS: CEFAZOLIN 2 GM in DEXTROSE 5%-WATER 100 ML IVPB SCH ×3 (01:26→17:00)
[2021-08-15] MEDS: INSULIN SLIDING SCALE (NOVOLOG) 1 VIAL SQ SCH ×6 (02:21→23:02)
[2021-08-15 07:03] LABS: HEMATOCRIT 22.8 % (32.4-45.2); HEMOGLOBIN 7.2 GM/dL (10.7-15.3); MCH 29.1 pg (25.7-33.7); MCHC 31.8 g/dl (32.0-36.0); MEAN CELL VOLUME 91.4 fl (80-96); MEAN PLT VOLUME 9.9 fl (7.5-11.1); PLATELET COUNT 355 10^3/uL (134-434); RBC 2.49 M/mm3 (3.60-5.2); RDW 15.2 % (11.6-15.6); WHITE BLOOD COUNT 12.2 K/mm3 (4.0-10.0)
[2021-08-15 07:41] LABS: CHLORIDE 120 mmol/L (98-107); SODIUM 150 mmol/L (136-145)
[2021-08-15 07:49] LABS: CALCIUM 7.9 mg/dL (8.5-10.1)
[2021-08-15 07:50] LABS: ANION GAP 5 MMOL/L (8-16); CO2 25 mmol/L (21-32); GLUCOSE,RANDOM 182 mg/dL (74-106); MAGNESIUM 1.6 mg/dL (1.8-2.4)
[2021-08-15 07:52] LABS: CREATININE 0.7 mg/dL (0.55-1.3)
[2021-08-15 07:54] LABS: BILIRUBIN,TOTAL 0.2 mg/dL (0.2-1); TOT PROT 4.7 g/dl (6.4-8.2)
[2021-08-15 07:56] LABS: PHOSPHOROUS 3.1 mg/dL (2.5-4.9); SGOT/AST 26 U/L (15-37)
[2021-08-15 07:59] LABS: ALK PHOS 203 U/L (45-117); SGPT/ALT < 6 U/L (13-61)
[2021-08-15] MEDS: AMINO ACIDS/PROTEIN HYDROLYS 30 ML LIQUID.PKT PEG SCH ×2 (08:30→16:34)
[2021-08-15] MEDS ORDERED: ceFAZolin SODIUM 1 GM VIAL ONE (08:47)
[2021-08-15] MEDS ORDERED: DEXTROSE 5%-WATER 100 ML IVPB ONE (08:47)
[2021-08-15] MEDS: ENOXAPARIN NA (PORCINE) 40 MG/0.4 ML DISP.SYRIN SQ SCH (09:34)
[2021-08-15] MEDS: PANTOPRAZOLE SODIUM 40 MG VIAL IVPUSH SCH (09:35)
[2021-08-15] MEDS: ASCORBIC ACID 500 MG TABLET (FP) PEG SCH (09:36)
[2021-08-15] MEDS: ZINC SULFATE 220 MG CAPSULE (FP) PO SCH (09:36)
[2021-08-15 10:12] LABS: ANISOCYTOSIS 2+; MACROCYTOSIS 2+; PLATELET ESTIMATE NORMAL; ROULEAU 1+
[2021-08-15] MEDS ORDERED: RACEPINEPHRINE IH SOL 2.25% 11.25 MG/0.5 ML VIAL IH ONE (12:14)
[2021-08-15] MEDS ORDERED: DEXAMETHASONE SOD PHOSPHATE 10 MG/1 ML VIAL IVPUSH ONE (12:14)
[2021-08-15] MEDS ORDERED: RACEPINEPHRINE IH SOL 2.25% 11.25 MG/0.5 ML VIAL IH PRN (14:35)
[2021-08-15] MEDS: LABETALOL HCL 200 MG TABLET (FP) GT SCH ×2 (16:34→23:01)
[2021-08-15] MEDS: hydrALAZINE HCL 50 MG TABLET (FP) GT SCH ×2 (16:34→23:01)
[2021-08-15] MEDS: VANCOMYCIN 1 GRAM (PRE-DOCKED) 1,000 MG/250 ML BAG IVPB SCH (16:35)
[2021-08-15] MEDS: DEXAMETHASONE SOD PHOSPHATE 10 MG/1 ML VIAL IVPUSH SCH (17:00)
[2021-08-15] MEDS: ATORVASTATIN CA 40 MG TABLET (FP) GT SCH (23:01)
[2021-08-15] MEDS: CHLORHEXIDINE GLUCONATE 4% CLEANSER FOR DECOLONIZATION TP SCH (23:02)
[2021-08-16] MEDS: DEXTROSE 5%-WATER - 1,000 ML IV SCH (00:19)
[2021-08-16] MEDS ORDERED: ceFAZolin SODIUM 1 GM VIAL ONE (01:30)
[2021-08-16] MEDS ORDERED: DEXTROSE 5%-WATER 100 ML IVPB ONE (01:30)
[2021-08-16] MEDS: INSULIN SLIDING SCALE (NOVOLOG) 1 VIAL SQ SCH ×6 (01:36→22:08)
[2021-08-16] MEDS: DEXAMETHASONE SOD PHOSPHATE 10 MG/1 ML VIAL IVPUSH SCH ×3 (01:37→17:30)
[2021-08-16] MEDS: CEFAZOLIN 2 GM in DEXTROSE 5%-WATER 100 ML IVPB SCH ×3 (01:37→17:29)
[2021-08-16 08:10] LABS: HEMATOCRIT 23.7 % (32.4-45.2); HEMOGLOBIN 7.7 GM/dL (10.7-15.3); MCH 29.6 pg (25.7-33.7); MCHC 32.3 g/dl (32.0-36.0); MEAN CELL VOLUME 91.6 fl (80-96); MEAN PLT VOLUME 9.7 fl (7.5-11.1); PLATELET COUNT 438 10^3/uL (134-434); RBC 2.59 M/mm3 (3.60-5.2); RDW 15.4 % (11.6-15.6); WHITE BLOOD COUNT 13.4 K/mm3 (4.0-10.0)
[2021-08-16] MEDS: AMINO ACIDS/PROTEIN HYDROLYS 30 ML LIQUID.PKT PEG SCH ×2 (08:30→17:29)
[2021-08-16 08:31] LABS: BLOOD UREA NITROGEN 38.4 mg/dL (7-18); CREATININE 0.9 mg/dL (0.55-1.3)
[2021-08-16 08:33] LABS: BILIRUBIN,TOTAL 0.2 mg/dL (0.2-1); CALCIUM 8.2 mg/dL (8.5-10.1); TOT PROT 4.9 g/dl (6.4-8.2)
[2021-08-16] MEDS: ASCORBIC ACID 500 MG TABLET (FP) PEG SCH (09:00)
[2021-08-16] MEDS: PANTOPRAZOLE SODIUM 40 MG VIAL IVPUSH SCH (09:00)
[2021-08-16] MEDS: LABETALOL HCL 200 MG TABLET (FP) GT SCH ×2 (09:00→22:08)
[2021-08-16] MEDS: ESCITALOPRAM OXALATE 10 MG TABLET GT SCH (09:00)
[2021-08-16] MEDS: CLOPIDOGREL BISULFATE 75 MG TABLET (FP) GT SCH (09:00)
[2021-08-16] MEDS: ENOXAPARIN NA (PORCINE) 40 MG/0.4 ML DISP.SYRIN SQ SCH (09:01)
[2021-08-16] MEDS: ZINC SULFATE 220 MG CAPSULE (FP) PO SCH (09:01)
[2021-08-16] MEDS: hydrALAZINE HCL 50 MG TABLET (FP) GT SCH ×2 (09:43→22:08)
[2021-08-16] MEDS: amLODIPine BESYLATE 2.5 MG TABLET (FP) GT SCH (09:43)
[2021-08-16] MEDS: BANATROL PLUS POWDER PACKET PO SCH ×2 (14:01→22:08)
[2021-08-16] MEDS: ACETYLCYSTEINE 20% 200MG/ML 4 ML VIAL *FOR ORAL / INH USE ONLY NEB SCH ×3 (14:20→20:32)
[2021-08-16] MEDS: ALBUTEROL SO4 0.083% IH SOL 2.5 MG/3 ML VIAL.NEB. NEB SCH ×3 (14:20→20:33)
[2021-08-16 16:55] LABS: CALCIUM 8.1 mg/dL (8.5-10.1)
[2021-08-16 16:56] LABS: BLOOD UREA NITROGEN 41.3 mg/dL (7-18)
[2021-08-16 16:59] LABS: CREATININE 0.9 mg/dL (0.55-1.3)
[2021-08-16] MEDS: ATORVASTATIN CA 40 MG TABLET (FP) GT SCH (22:08)
[2021-08-16] MEDS: CHLORHEXIDINE GLUCONATE 4% CLEANSER FOR DECOLONIZATION TP SCH (22:09)
[2021-08-17] MEDS: INSULIN SLIDING SCALE (NOVOLOG) 1 VIAL SQ SCH ×7 (02:34→22:36)
[2021-08-17] MEDS: DEXAMETHASONE SOD PHOSPHATE 10 MG/1 ML VIAL IVPUSH SCH ×2 (02:35→09:29)
[2021-08-17] MEDS: CEFAZOLIN 2 GM in DEXTROSE 5%-WATER 100 ML IVPB SCH ×3 (02:35→17:27)
[2021-08-17] MEDS: BANATROL PLUS POWDER PACKET PO SCH ×2 (05:57→14:43)
[2021-08-17 07:22] LABS: HEMATOCRIT 23.1 % (32.4-45.2); HEMOGLOBIN 7.6 GM/dL (10.7-15.3); MCH 29.9 pg (25.7-33.7); MCHC 33.1 g/dl (32.0-36.0); MEAN CELL VOLUME 90.4 fl (80-96); PLATELET COUNT 516 10^3/uL (134-434); RBC 2.55 M/mm3 (3.60-5.2); WHITE BLOOD COUNT 10.7 K/mm3 (4.0-10.0)
[2021-08-17 07:32] LABS: CHLORIDE 113 mmol/L (98-107); SODIUM 141 mmol/L (136-145)
[2021-08-17 07:35] LABS: CALCIUM 8.7 mg/dL (8.5-10.1)
[2021-08-17 07:36] LABS: ALBUMIN 1.2 g/dl (3.4-5.0); ANION GAP 7 MMOL/L (8-16); BLOOD UREA NITROGEN 46.4 mg/dL (7-18); CO2 22 mmol/L (21-32); GLUCOSE,RANDOM 299 mg/dL (74-106)
[2021-08-17 07:39] LABS: CREATININE 0.9 mg/dL (0.55-1.3); SGOT/AST 15 U/L (15-37); SGPT/ALT < 6 U/L (13-61)
[2021-08-17 07:40] LABS: BILIRUBIN,TOTAL 0.2 mg/dL (0.2-1); TOT PROT 5.1 g/dl (6.4-8.2)
[2021-08-17 07:42] LABS: ALK PHOS 197 U/L (45-117)
[2021-08-17] MEDS: ACETYLCYSTEINE 20% 200MG/ML 4 ML VIAL *FOR ORAL / INH USE ONLY NEB SCH ×4 (08:30→20:22)
[2021-08-17] MEDS: ALBUTEROL SO4 0.083% IH SOL 2.5 MG/3 ML VIAL.NEB. NEB SCH ×4 (08:30→20:22)
[2021-08-17] MEDS: AMINO ACIDS/PROTEIN HYDROLYS 30 ML LIQUID.PKT PEG SCH ×2 (08:45→16:56)
[2021-08-17] MEDS: PANTOPRAZOLE SODIUM 40 MG VIAL IVPUSH SCH (09:29)
[2021-08-17] MEDS: ENOXAPARIN NA (PORCINE) 40 MG/0.4 ML DISP.SYRIN SQ SCH (09:29)
[2021-08-17] MEDS: hydrALAZINE HCL 50 MG TABLET (FP) GT SCH ×2 (09:30→21:49)
[2021-08-17] MEDS: ZINC SULFATE 220 MG CAPSULE (FP) PO SCH (09:30)
[2021-08-17] MEDS: amLODIPine BESYLATE 2.5 MG TABLET (FP) GT SCH (09:30)
[2021-08-17] MEDS: ASCORBIC ACID 500 MG TABLET (FP) PEG SCH (09:30)
[2021-08-17] MEDS: CLOPIDOGREL BISULFATE 75 MG TABLET (FP) GT SCH (09:30)
[2021-08-17] MEDS: LABETALOL HCL 200 MG TABLET (FP) GT SCH ×2 (09:30→21:50)
[2021-08-17] MEDS: ESCITALOPRAM OXALATE 10 MG TABLET GT SCH (09:46)
[2021-08-17] MEDS: SCOPOLAMINE HYDROBROMIDE 1 PATCH PATCH.TD72 TD SCH (11:13)
[2021-08-17] MEDS: NYSTATIN 100,000 UNIT/GM TOPICAL CREAM 15 GM TUBE TP SCH ×2 (16:55→21:50)
[2021-08-17] MEDS ORDERED: ACETAMINOPHEN 650 MG/20.3 ML ORAL SOLUTION (CUPS) GT PRN (17:38)
[2021-08-17] MEDS ORDERED: RACEPINEPHRINE IH SOL 2.25% 11.25 MG/0.5 ML VIAL IH PRN (17:38)
[2021-08-17] MEDS ORDERED: FENTANYL NS IVPB 500 MCG/100 ML BAG IVPB SCH (17:38)
[2021-08-17] MEDS ORDERED: DEXTROSE 50%-WATER - 25 GM/50 ML VIAL IVPUSH PRN (17:38)
[2021-08-17] MEDS: BANATROL PLUS POWDER PACKET GT SCH (21:49)
[2021-08-17] MEDS: CHLORHEXIDINE GLUCONATE 4% CLEANSER FOR DECOLONIZATION TP SCH (21:49)
[2021-08-17] MEDS: ATORVASTATIN CA 40 MG TABLET (FP) GT SCH (21:49)
[2021-08-18] MEDS ORDERED: ceFAZolin SODIUM 1 GM VIAL ONE ×2 (00:37→16:55)
[2021-08-18] MEDS ORDERED: DEXTROSE 5%-WATER 100 ML IVPB ONE ×2 (00:37→16:55)
[2021-08-18] MEDS: INSULIN SLIDING SCALE (NOVOLOG) 1 VIAL SQ SCH ×5 (02:45→17:08)
[2021-08-18] MEDS: CEFAZOLIN 2 GM in DEXTROSE 5%-WATER 100 ML IVPB SCH ×3 (03:16→17:09)
[2021-08-18] MEDS: BANATROL PLUS POWDER PACKET GT SCH ×2 (05:39→14:48)
[2021-08-18] MEDS: ACETYLCYSTEINE 20% 200MG/ML 4 ML VIAL *FOR ORAL / INH USE ONLY NEB SCH ×4 (08:56→20:25)
[2021-08-18] MEDS: ALBUTEROL SO4 0.083% IH SOL 2.5 MG/3 ML VIAL.NEB. NEB SCH ×4 (08:57→20:25)
[2021-08-18] MEDS: AMINO ACIDS/PROTEIN HYDROLYS 30 ML LIQUID.PKT PEG SCH ×2 (10:55→17:09)
[2021-08-18] MEDS: ENOXAPARIN NA (PORCINE) 40 MG/0.4 ML DISP.SYRIN SQ SCH (10:55)
[2021-08-18] MEDS: LABETALOL HCL 200 MG TABLET (FP) GT SCH (10:55)
[2021-08-18] MEDS: ASCORBIC ACID 500 MG TABLET (FP) PEG SCH (10:56)
[2021-08-18] MEDS: hydrALAZINE HCL 50 MG TABLET (FP) GT SCH (10:56)
[2021-08-18] MEDS: ESCITALOPRAM OXALATE 10 MG TABLET GT SCH (10:56)
[2021-08-18] MEDS: PANTOPRAZOLE SODIUM 40 MG VIAL IVPUSH SCH (10:56)
[2021-08-18] MEDS: ZINC SULFATE 220 MG CAPSULE (FP) PO SCH (10:56)
[2021-08-18] MEDS: amLODIPine BESYLATE 2.5 MG TABLET (FP) GT SCH (10:56)
[2021-08-18] MEDS: CLOPIDOGREL BISULFATE 75 MG TABLET (FP) GT SCH (10:56)
[2021-08-18] MEDS: NYSTATIN 100,000 UNIT/GM TOPICAL CREAM 15 GM TUBE TP SCH (12:00)
[2021-08-19] MEDS: BANATROL PLUS POWDER PACKET GT SCH ×4 (00:34→22:24)
[2021-08-19] MEDS: CHLORHEXIDINE GLUCONATE 4% CLEANSER FOR DECOLONIZATION TP SCH ×2 (00:34→22:24)
[2021-08-19] MEDS: INSULIN SLIDING SCALE (NOVOLOG) 1 VIAL SQ SCH ×7 (00:35→22:25)
[2021-08-19] MEDS: NYSTATIN 100,000 UNIT/GM TOPICAL CREAM 15 GM TUBE TP SCH ×3 (00:35→22:24)
[2021-08-19] MEDS: LABETALOL HCL 200 MG TABLET (FP) GT SCH ×3 (00:36→22:25)
[2021-08-19] MEDS: hydrALAZINE HCL 50 MG TABLET (FP) GT SCH ×3 (00:36→22:24)
[2021-08-19] MEDS: ATORVASTATIN CA 40 MG TABLET (FP) GT SCH ×2 (00:36→22:25)
[2021-08-19] MEDS ORDERED: ceFAZolin SODIUM 1 GM VIAL ONE ×3 (00:49→17:19)
[2021-08-19] MEDS ORDERED: DEXTROSE 5%-WATER 100 ML IVPB ONE ×3 (00:50→17:19)
[2021-08-19] MEDS: CEFAZOLIN 2 GM in DEXTROSE 5%-WATER 100 ML IVPB SCH ×3 (03:15→17:28)
[2021-08-19] MEDS: ALBUTEROL SO4 0.083% IH SOL 2.5 MG/3 ML VIAL.NEB. NEB SCH ×4 (08:35→20:30)
[2021-08-19] MEDS: ACETYLCYSTEINE 20% 200MG/ML 4 ML VIAL *FOR ORAL / INH USE ONLY NEB SCH ×4 (08:35→21:36)
[2021-08-19] MEDS: AMINO ACIDS/PROTEIN HYDROLYS 30 ML LIQUID.PKT PEG SCH ×2 (11:20→17:29)
[2021-08-19] MEDS: PANTOPRAZOLE SODIUM 40 MG VIAL IVPUSH SCH (11:20)
[2021-08-19] MEDS: ASCORBIC ACID 500 MG TABLET (FP) PEG SCH (11:21)
[2021-08-19] MEDS: ZINC SULFATE 220 MG CAPSULE (FP) PO SCH (11:21)
[2021-08-19] MEDS: amLODIPine BESYLATE 2.5 MG TABLET (FP) GT SCH (11:21)
[2021-08-19] MEDS: CLOPIDOGREL BISULFATE 75 MG TABLET (FP) GT SCH (11:21)
[2021-08-19] MEDS: ESCITALOPRAM OXALATE 10 MG TABLET GT SCH (11:21)
[2021-08-19] MEDS: ENOXAPARIN NA (PORCINE) 40 MG/0.4 ML DISP.SYRIN SQ SCH (11:22)
[2021-08-19 12:23] LABS: HEMATOCRIT 24.9 % (32.4-45.2); HEMOGLOBIN 8.2 GM/dL (10.7-15.3); MCH 30.5 pg (25.7-33.7); MCHC 33.1 g/dl (32.0-36.0); MEAN CELL VOLUME 92.2 fl (80-96); MEAN PLT VOLUME 8.7 fl (7.5-11.1); PLATELET COUNT 592 10^3/uL (134-434); RDW 15.5 % (11.6-15.6); WHITE BLOOD COUNT 10.4 K/mm3 (4.0-10.0)
[2021-08-19 12:37] LABS: BLOOD UREA NITROGEN 42.5 mg/dL (7-18); CALCIUM 8.7 mg/dL (8.5-10.1)
[2021-08-19 12:38] LABS: ALBUMIN 1.2 g/dl (3.4-5.0)
[2021-08-19 12:40] LABS: CREATININE 0.7 mg/dL (0.55-1.3)
[2021-08-19 12:42] LABS: BILIRUBIN,TOTAL 0.2 mg/dL (0.2-1)
[2021-08-20] MEDS ORDERED: DEXTROSE 5%-WATER 100 ML IVPB ONE ×2 (00:48→09:05)
[2021-08-20] MEDS ORDERED: ceFAZolin SODIUM 1 GM VIAL ONE ×2 (00:48→09:04)
[2021-08-20] MEDS: CEFAZOLIN 2 GM in DEXTROSE 5%-WATER 100 ML IVPB SCH ×4 (01:22→17:50)
[2021-08-20] MEDS ORDERED: CEFAZOLIN 2 GM in DEXTROSE 5%-WATER 100 ML IVPB SCH (02:00)
[2021-08-20] MEDS: INSULIN SLIDING SCALE (NOVOLOG) 1 VIAL SQ SCH ×6 (02:00→21:26)
[2021-08-20] MEDS: BANATROL PLUS POWDER PACKET GT SCH ×3 (06:27→21:27)
[2021-08-20] MEDS: ALBUTEROL SO4 0.083% IH SOL 2.5 MG/3 ML VIAL.NEB. NEB SCH ×4 (07:20→20:10)
[2021-08-20] MEDS: ACETYLCYSTEINE 20% 200MG/ML 4 ML VIAL *FOR ORAL / INH USE ONLY NEB SCH ×4 (07:20→20:10)
[2021-08-20] MEDS: PANTOPRAZOLE SODIUM 40 MG VIAL IVPUSH SCH (09:09)
[2021-08-20] MEDS: AMINO ACIDS/PROTEIN HYDROLYS 30 ML LIQUID.PKT PEG SCH ×2 (09:10→17:50)
[2021-08-20] MEDS: ENOXAPARIN NA (PORCINE) 40 MG/0.4 ML DISP.SYRIN SQ SCH (09:10)
[2021-08-20] MEDS: CLOPIDOGREL BISULFATE 75 MG TABLET (FP) GT SCH (09:11)
[2021-08-20] MEDS: amLODIPine BESYLATE 2.5 MG TABLET (FP) GT SCH (09:11)
[2021-08-20] MEDS: ASCORBIC ACID 500 MG TABLET (FP) PEG SCH (09:11)
[2021-08-20] MEDS: LABETALOL HCL 200 MG TABLET (FP) GT SCH ×2 (09:11→21:26)
[2021-08-20] MEDS: ESCITALOPRAM OXALATE 10 MG TABLET GT SCH (09:11)
[2021-08-20] MEDS: hydrALAZINE HCL 50 MG TABLET (FP) GT SCH ×2 (09:12→21:26)
[2021-08-20] MEDS: ZINC SULFATE 220 MG CAPSULE (FP) PO SCH ×2 (09:12→11:50)
[2021-08-20] MEDS: NYSTATIN 100,000 UNIT/GM TOPICAL CREAM 15 GM TUBE TP SCH ×2 (09:12→21:27)
[2021-08-20] MEDS ORDERED: SCOPOLAMINE HYDROBROMIDE 1 PATCH PATCH.TD72 TD SCH (11:15)
[2021-08-20] MEDS: ATORVASTATIN CA 40 MG TABLET (FP) GT SCH (21:26)
[2021-08-20] MEDS: CHLORHEXIDINE GLUCONATE 4% CLEANSER FOR DECOLONIZATION TP SCH (21:27)
[2021-08-21] MEDS: CEFAZOLIN 2 GM in DEXTROSE 5%-WATER 100 ML IVPB SCH ×2 (01:34→09:34)
[2021-08-21] MEDS: BANATROL PLUS POWDER PACKET GT SCH ×3 (05:36→21:37)
[2021-08-21] MEDS: INSULIN SLIDING SCALE (NOVOLOG) 1 VIAL SQ SCH ×4 (06:03→21:36)
[2021-08-21] MEDS: ALBUTEROL SO4 0.083% IH SOL 2.5 MG/3 ML VIAL.NEB. NEB SCH ×4 (07:20→20:10)
[2021-08-21] MEDS: ACETYLCYSTEINE 20% 200MG/ML 4 ML VIAL *FOR ORAL / INH USE ONLY NEB SCH ×4 (07:20→20:10)
[2021-08-21] MEDS ORDERED: DEXTROSE 5%-WATER 100 ML IVPB ONE (08:17)
[2021-08-21] MEDS ORDERED: ceFAZolin SODIUM 1 GM VIAL ONE (08:17)
[2021-08-21] MEDS: AMINO ACIDS/PROTEIN HYDROLYS 30 ML LIQUID.PKT PEG SCH ×2 (08:23→18:28)
[2021-08-21] MEDS: CLOPIDOGREL BISULFATE 75 MG TABLET (FP) GT SCH (09:36)
[2021-08-21] MEDS: ESCITALOPRAM OXALATE 10 MG TABLET GT SCH (09:36)
[2021-08-21] MEDS: amLODIPine BESYLATE 2.5 MG TABLET (FP) GT SCH (09:36)
[2021-08-21] MEDS: LABETALOL HCL 200 MG TABLET (FP) GT SCH ×2 (09:36→21:36)
[2021-08-21] MEDS: ZINC SULFATE 220 MG CAPSULE (FP) PO SCH (09:36)
[2021-08-21] MEDS: ASCORBIC ACID 500 MG TABLET (FP) PEG SCH (09:36)
[2021-08-21] MEDS: ENOXAPARIN NA (PORCINE) 40 MG/0.4 ML DISP.SYRIN SQ SCH (09:37)
[2021-08-21] MEDS: hydrALAZINE HCL 50 MG TABLET (FP) GT SCH ×2 (09:37→21:36)
[2021-08-21] MEDS: NYSTATIN 100,000 UNIT/GM TOPICAL CREAM 15 GM TUBE TP SCH ×2 (09:37→21:47)
[2021-08-21] MEDS: FAMOTIDINE 40 MG/5 ML ORAL SUSPENSION NGT SCH ×2 (11:40→21:47)
[2021-08-21 13:05] LABS: HEMATOCRIT 22.6 % (32.4-45.2); HEMOGLOBIN 7.4 GM/dL (10.7-15.3); MCH 29.9 pg (25.7-33.7); MCHC 32.6 g/dl (32.0-36.0); MEAN CELL VOLUME 91.9 fl (80-96); MEAN PLT VOLUME 8.4 fl (7.5-11.1); PLATELET COUNT 612 10^3/uL (134-434); RBC 2.46 M/mm3 (3.60-5.2); RDW 16.1 % (11.6-15.6); WHITE BLOOD COUNT 6.9 K/mm3 (4.0-10.0)
[2021-08-21 13:19] LABS: CHLORIDE 109 mmol/L (98-107); SODIUM 139 mmol/L (136-145)
[2021-08-21 13:20] LABS: CALCIUM 8.5 mg/dL (8.5-10.1)
[2021-08-21 13:21] LABS: ALBUMIN 1.2 g/dl (3.4-5.0); ANION GAP 4 MMOL/L (8-16); BLOOD UREA NITROGEN 29.8 mg/dL (7-18); CO2 26 mmol/L (21-32); GLUCOSE,RANDOM 183 mg/dL (74-106)
[2021-08-21 13:24] LABS: CREATININE 0.6 mg/dL (0.55-1.3); SGOT/AST 13 U/L (15-37)
[2021-08-21 13:25] LABS: BILIRUBIN,TOTAL 0.3 mg/dL (0.2-1)
[2021-08-21 13:26] LABS: TOT PROT 4.8 g/dl (6.4-8.2)
[2021-08-21 13:28] LABS: ALK PHOS 150 U/L (45-117); SGPT/ALT < 6 U/L (13-61)
[2021-08-21] MEDS ORDERED: DEXTROSE 50%-WATER 25 GM/50 ML DISP.SYRIN IVPUSH PRN (14:38)
[2021-08-21] MEDS ORDERED: RACEPINEPHRINE IH SOL 2.25% 11.25 MG/0.5 ML VIAL IH PRN (14:38)
[2021-08-21] MEDS ORDERED: CEFAZOLIN 2 GM in DEXTROSE 5%-WATER 100 ML IVPB SCH (18:00)
[2021-08-21] MEDS: ATORVASTATIN CA 40 MG TABLET (FP) GT SCH (21:36)
[2021-08-22] MEDS: INSULIN SLIDING SCALE (NOVOLOG) 1 VIAL SQ SCH ×4 (06:32→21:46)
[2021-08-22] MEDS: BANATROL PLUS POWDER PACKET GT SCH ×3 (06:33→21:45)
[2021-08-22] MEDS: AMINO ACIDS/PROTEIN HYDROLYS 30 ML LIQUID.PKT PEG SCH ×2 (08:06→16:32)
[2021-08-22] MEDS: ACETYLCYSTEINE 20% 200MG/ML 4 ML VIAL *FOR ORAL / INH USE ONLY NEB SCH ×4 (08:30→20:09)
[2021-08-22] MEDS: ALBUTEROL SO4 0.083% IH SOL 2.5 MG/3 ML VIAL.NEB. NEB SCH ×4 (08:30→20:10)
[2021-08-22] MEDS: LABETALOL HCL 200 MG TABLET (FP) GT SCH ×2 (09:46→21:48)
[2021-08-22] MEDS: FAMOTIDINE 40 MG/5 ML ORAL SUSPENSION NGT SCH ×2 (09:46→21:46)
[2021-08-22] MEDS: ASCORBIC ACID 500 MG/5 ML UNIT DOSE CUP PEG SCH (09:46)
[2021-08-22] MEDS: ENOXAPARIN NA (PORCINE) 40 MG/0.4 ML DISP.SYRIN SQ SCH (09:46)
[2021-08-22] MEDS: hydrALAZINE HCL 50 MG TABLET (FP) GT SCH ×2 (09:47→21:45)
[2021-08-22] MEDS: ZINC SULFATE 220 MG CAPSULE (FP) GT SCH (09:47)
[2021-08-22] MEDS: CLOPIDOGREL BISULFATE 75 MG TABLET (FP) GT SCH (09:47)
[2021-08-22] MEDS: NYSTATIN 100,000 UNIT/GM TOPICAL CREAM 15 GM TUBE TP SCH ×2 (09:47→21:46)
[2021-08-22] MEDS ORDERED: amLODIPine BESYLATE 2.5 MG TABLET (FP) GT SCH (10:00)
[2021-08-22] MEDS ORDERED: ESCITALOPRAM OXALATE 10 MG TABLET GT SCH (10:00)
[2021-08-22 11:22] LABS: BASO % 0.6 % (0-2.0); EOS % 0.9 % (0-4.5); HEMOGLOBIN 7.2 GM/dL (10.7-15.3); LYMPH % 17.6 % (8-40); MCH 30.5 pg (25.7-33.7); MCHC 32.6 g/dl (32.0-36.0); MEAN CELL VOLUME 93.5 fl (80-96); MEAN PLT VOLUME 8.4 fl (7.5-11.1); MONO % 9.9 % (3.8-10.2); PLATELET COUNT 644 10^3/uL (134-434); RBC 2.35 M/mm3 (3.60-5.2); RDW 15.5 % (11.6-15.6); WHITE BLOOD COUNT 5.4 K/mm3 (4.0-10.0)
[2021-08-22 11:29] LABS: CHLORIDE 107 mmol/L (98-107); SODIUM 137 mmol/L (136-145)
[2021-08-22 11:34] LABS: ALBUMIN 1.3 g/dl (3.4-5.0); CALCIUM 8.6 mg/dL (8.5-10.1)
[2021-08-22 11:35] LABS: ANION GAP 4 MMOL/L (8-16); BLOOD UREA NITROGEN 26.1 mg/dL (7-18); CO2 26 mmol/L (21-32); GLUCOSE,RANDOM 190 mg/dL (74-106)
[2021-08-22 11:37] LABS: CREATININE 0.5 mg/dL (0.55-1.3); SGOT/AST 12 U/L (15-37)
[2021-08-22 11:39] LABS: BILIRUBIN,TOTAL 0.3 mg/dL (0.2-1)
[2021-08-22 11:40] LABS: ALK PHOS 159 U/L (45-117); SGPT/ALT < 6 U/L (13-61)
[2021-08-22] MEDS: ATORVASTATIN CA 40 MG TABLET (FP) GT SCH (21:45)
[2021-08-23] MEDS: BANATROL PLUS POWDER PACKET GT SCH ×3 (06:26→22:49)
[2021-08-23] MEDS: INSULIN SLIDING SCALE (NOVOLOG) 1 VIAL SQ SCH ×4 (06:26→22:52)
[2021-08-23] MEDS: ACETYLCYSTEINE 20% 200MG/ML 4 ML VIAL *FOR ORAL / INH USE ONLY NEB SCH ×4 (09:00→19:26)
[2021-08-23] MEDS: ALBUTEROL SO4 0.083% IH SOL 2.5 MG/3 ML VIAL.NEB. NEB SCH ×4 (09:00→19:25)
[2021-08-23 09:11] LABS: ANION GAP 4 MMOL/L (8-16); CALCIUM 8.6 mg/dL (8.5-10.1); CHLORIDE 105 mmol/L (98-107); CO2 28 mmol/L (21-32); GLUCOSE,RANDOM 191 mg/dL (74-106); SODIUM 136 mmol/L (136-145)
[2021-08-23 09:12] LABS: ALBUMIN 1.2 g/dl (3.4-5.0)
[2021-08-23 09:13] LABS: CREATININE 0.4 mg/dL (0.55-1.3)
[2021-08-23 09:14] LABS: SGOT/AST 16 U/L (15-37)
[2021-08-23 09:15] LABS: BILIRUBIN,TOTAL 0.6 mg/dL (0.2-1); BLOOD UREA NITROGEN 21.4 mg/dL (7-18)
[2021-08-23 09:19] LABS: SGPT/ALT < 6 U/L (13-61)
[2021-08-23 09:21] LABS: ALK PHOS 162 U/L (45-117)
[2021-08-23 09:37] LABS: HEMATOCRIT 20.7 % (32.4-45.2); MCH 30.2 pg (25.7-33.7); MCHC 32.7 g/dl (32.0-36.0); MEAN CELL VOLUME 92.3 fl (80-96); PLATELET COUNT 595 10^3/uL (134-434); RBC 2.25 M/mm3 (3.60-5.2); RDW 15.7 % (11.6-15.6); WHITE BLOOD COUNT 5.7 K/mm3 (4.0-10.0)
[2021-08-23 09:39] LABS: HEMOGLOBIN 6.8 GM/dL (10.7-15.3)
[2021-08-23] MEDS: AMINO ACIDS/PROTEIN HYDROLYS 30 ML LIQUID.PKT PEG SCH ×2 (11:02→17:37)
[2021-08-23] MEDS: hydrALAZINE HCL 50 MG TABLET (FP) GT SCH ×2 (11:02→22:49)
[2021-08-23] MEDS: ENOXAPARIN NA (PORCINE) 40 MG/0.4 ML DISP.SYRIN SQ SCH (11:02)
[2021-08-23] MEDS: CLOPIDOGREL BISULFATE 75 MG TABLET (FP) GT SCH (11:02)
[2021-08-23] MEDS: LABETALOL HCL 200 MG TABLET (FP) GT SCH ×2 (11:03→22:49)
[2021-08-23] MEDS: FAMOTIDINE 40 MG/5 ML ORAL SUSPENSION NGT SCH ×2 (11:03→22:49)
[2021-08-23] MEDS: ZINC SULFATE 220 MG CAPSULE (FP) GT SCH (11:03)
[2021-08-23] MEDS: ASCORBIC ACID 500 MG/5 ML UNIT DOSE CUP PEG SCH (11:03)
[2021-08-23] MEDS: COLLAGENASE CLOSTRIDIUM HIST. 30 GRAMS TUBE TP SCH (11:30)
[2021-08-23] MEDS: ATORVASTATIN CA 40 MG TABLET (FP) GT SCH (22:49)
[2021-08-24] MEDS: INSULIN SLIDING SCALE (NOVOLOG) 1 VIAL SQ SCH ×4 (06:25→21:05)
[2021-08-24] MEDS: BANATROL PLUS POWDER PACKET GT SCH (06:25)
[2021-08-24] MEDS: ALBUTEROL SO4 0.083% IH SOL 2.5 MG/3 ML VIAL.NEB. NEB SCH ×4 (07:20→20:20)
[2021-08-24] MEDS: ACETYLCYSTEINE 20% 200MG/ML 4 ML VIAL *FOR ORAL / INH USE ONLY NEB SCH ×4 (07:20→20:20)
[2021-08-24] MEDS ORDERED: FUROSEMIDE 40 MG/4 ML INJECTABLE VIAL IVPUSH ONE (07:45)
[2021-08-24 08:59] LABS: HEMATOCRIT 25.6 % (32.4-45.2); HEMOGLOBIN 8.4 GM/dL (10.7-15.3); MCH 28.2 pg (25.7-33.7); MCHC 32.8 g/dl (32.0-36.0); MEAN CELL VOLUME 85.8 fl (80-96); PLATELET COUNT 587 10^3/uL (134-434); RBC 2.98 M/mm3 (3.60-5.2); RDW 21.2 % (11.6-15.6); WHITE BLOOD COUNT 7.3 K/mm3 (4.0-10.0)
[2021-08-24 09:24] LABS: BLOOD UREA NITROGEN 23.4 mg/dL (7-18)
[2021-08-24 09:27] LABS: CREATININE 0.5 mg/dL (0.55-1.3)
[2021-08-24] MEDS: AMINO ACIDS/PROTEIN HYDROLYS 30 ML LIQUID.PKT PEG SCH ×2 (10:27→17:14)
[2021-08-24] MEDS: hydrALAZINE HCL 50 MG TABLET (FP) GT SCH ×2 (10:27→21:07)
[2021-08-24] MEDS: CLOPIDOGREL BISULFATE 75 MG TABLET (FP) GT SCH (10:27)
[2021-08-24] MEDS: LABETALOL HCL 200 MG TABLET (FP) GT SCH ×2 (10:27→21:07)
[2021-08-24] MEDS: ZINC SULFATE 220 MG CAPSULE (FP) GT SCH (10:27)
[2021-08-24] MEDS: FAMOTIDINE 40 MG/5 ML ORAL SUSPENSION NGT SCH ×2 (10:28→21:07)
[2021-08-24] MEDS: ENOXAPARIN NA (PORCINE) 40 MG/0.4 ML DISP.SYRIN SQ SCH (10:28)
[2021-08-24] MEDS: ASCORBIC ACID 500 MG/5 ML UNIT DOSE CUP PEG SCH (10:29)
[2021-08-24] MEDS: COLLAGENASE CLOSTRIDIUM HIST. 30 GRAMS TUBE TP SCH (12:21)
[2021-08-24] MEDS: ATORVASTATIN CA 40 MG TABLET (FP) GT SCH (21:07)
[2021-08-24] MEDS: ACETAMINOPHEN 650 MG/20.3 ML ORAL SOLUTION (CUPS) GT PRN (21:08)
[2021-08-25] MEDS: INSULIN SLIDING SCALE (NOVOLOG) 1 VIAL SQ SCH ×4 (06:07→21:41)
[2021-08-25] MEDS: ACETYLCYSTEINE 20% 200MG/ML 4 ML VIAL *FOR ORAL / INH USE ONLY NEB SCH ×4 (08:51→20:10)
[2021-08-25] MEDS: ALBUTEROL SO4 0.083% IH SOL 2.5 MG/3 ML VIAL.NEB. NEB SCH ×4 (08:52→20:11)
[2021-08-25] MEDS: ASCORBIC ACID 500 MG/5 ML UNIT DOSE CUP PEG SCH (10:52)
[2021-08-25] MEDS: ENOXAPARIN NA (PORCINE) 40 MG/0.4 ML DISP.SYRIN SQ SCH (10:52)
[2021-08-25] MEDS: AMINO ACIDS/PROTEIN HYDROLYS 30 ML LIQUID.PKT PEG SCH ×2 (10:52→17:30)
[2021-08-25] MEDS: FAMOTIDINE 40 MG/5 ML ORAL SUSPENSION NGT SCH ×2 (10:52→21:41)
[2021-08-25] MEDS: hydrALAZINE HCL 50 MG TABLET (FP) GT SCH ×2 (10:53→21:41)
[2021-08-25] MEDS: LABETALOL HCL 200 MG TABLET (FP) GT SCH ×2 (10:53→21:41)
[2021-08-25] MEDS: CLOPIDOGREL BISULFATE 75 MG TABLET (FP) GT SCH (10:53)
[2021-08-25] MEDS: COLLAGENASE CLOSTRIDIUM HIST. 30 GRAMS TUBE TP SCH (10:54)
[2021-08-25] MEDS: ZINC SULFATE 220 MG CAPSULE (FP) GT SCH (11:01)
[2021-08-25] MEDS: ATORVASTATIN CA 40 MG TABLET (FP) GT SCH (21:41)
[2021-08-26] MEDS: INSULIN SLIDING SCALE (NOVOLOG) 1 VIAL SQ SCH ×4 (06:14→21:42)
[2021-08-26] MEDS: ACETYLCYSTEINE 20% 200MG/ML 4 ML VIAL *FOR ORAL / INH USE ONLY NEB SCH ×4 (09:20→20:26)
[2021-08-26] MEDS: ALBUTEROL SO4 0.083% IH SOL 2.5 MG/3 ML VIAL.NEB. NEB SCH ×4 (09:20→20:26)
[2021-08-26 10:03] LABS: BASO % 0.4 % (0-2.0); EOS % 0.5 % (0-4.5); HEMATOCRIT 26.5 % (32.4-45.2); HEMOGLOBIN 8.9 GM/dL (10.7-15.3); LYMPH % 13.8 % (8-40); MCH 28.5 pg (25.7-33.7); MCHC 33.5 g/dl (32.0-36.0); MEAN CELL VOLUME 85.2 fl (80-96); MEAN PLT VOLUME 7.3 fl (7.5-11.1); MONO % 11.9 % (3.8-10.2); NEUT % 73.4 % (42.8-82.8); PLATELET COUNT 600 10^3/uL (134-434); RBC 3.12 M/mm3 (3.60-5.2); RDW 20.8 % (11.6-15.6); WHITE BLOOD COUNT 9.3 K/mm3 (4.0-10.0)
[2021-08-26] MEDS: AMINO ACIDS/PROTEIN HYDROLYS 30 ML LIQUID.PKT PEG SCH ×2 (10:15→18:12)
[2021-08-26] MEDS: ZINC SULFATE 220 MG CAPSULE (FP) GT SCH (10:15)
[2021-08-26] MEDS: ENOXAPARIN NA (PORCINE) 40 MG/0.4 ML DISP.SYRIN SQ SCH (10:15)
[2021-08-26] MEDS: ASCORBIC ACID 500 MG/5 ML UNIT DOSE CUP PEG SCH (10:16)
[2021-08-26] MEDS: LABETALOL HCL 200 MG TABLET (FP) GT SCH ×2 (10:16→21:43)
[2021-08-26] MEDS: CLOPIDOGREL BISULFATE 75 MG TABLET (FP) GT SCH (10:16)
[2021-08-26] MEDS: hydrALAZINE HCL 50 MG TABLET (FP) GT SCH ×2 (10:16→21:43)
[2021-08-26 10:18] LABS: CHLORIDE 106 mmol/L (98-107); SODIUM 140 mmol/L (136-145)
[2021-08-26 10:23] LABS: ANION GAP 3 MMOL/L (8-16); CALCIUM 9.6 mg/dL (8.5-10.1); CO2 30 mmol/L (21-32); GLUCOSE,RANDOM 156 mg/dL (74-106)
[2021-08-26 10:24] LABS: ALBUMIN 1.3 g/dl (3.4-5.0); BLOOD UREA NITROGEN 24.2 mg/dL (7-18)
[2021-08-26] MEDS: FAMOTIDINE 40 MG/5 ML ORAL SUSPENSION NGT SCH ×2 (10:25→21:43)
[2021-08-26 10:28] LABS: BILIRUBIN,TOTAL 0.3 mg/dL (0.2-1); CREATININE 0.5 mg/dL (0.55-1.3); SGOT/AST 11 U/L (15-37); SGPT/ALT < 6 U/L (13-61); TOT PROT 5.6 g/dl (6.4-8.2)
[2021-08-26 10:29] LABS: ALK PHOS 160 U/L (45-117)
[2021-08-26 11:31] LABS: ANISOCYTOSIS 1+; MACROCYTOSIS 1+; OVALOCYTE 1+
[2021-08-26] MEDS: COLLAGENASE CLOSTRIDIUM HIST. 30 GRAMS TUBE TP SCH (11:40)
[2021-08-26] MEDS: ATORVASTATIN CA 40 MG TABLET (FP) GT SCH (21:43)
[2021-08-27] MEDS: INSULIN SLIDING SCALE (NOVOLOG) 1 VIAL SQ SCH ×4 (06:45→21:58)
[2021-08-27] MEDS: ALBUTEROL SO4 0.083% IH SOL 2.5 MG/3 ML VIAL.NEB. NEB SCH ×4 (07:53→20:46)
[2021-08-27] MEDS: ACETYLCYSTEINE 20% 200MG/ML 4 ML VIAL *FOR ORAL / INH USE ONLY NEB SCH ×4 (07:53→20:45)
[2021-08-27] MEDS: AMINO ACIDS/PROTEIN HYDROLYS 30 ML LIQUID.PKT PEG SCH ×2 (10:17→16:32)
[2021-08-27] MEDS: CLOPIDOGREL BISULFATE 75 MG TABLET (FP) GT SCH (10:17)
[2021-08-27] MEDS: ENOXAPARIN NA (PORCINE) 40 MG/0.4 ML DISP.SYRIN SQ SCH (10:18)
[2021-08-27] MEDS: FAMOTIDINE 40 MG/5 ML ORAL SUSPENSION NGT SCH ×2 (10:18→21:54)
[2021-08-27] MEDS: hydrALAZINE HCL 50 MG TABLET (FP) GT SCH ×2 (10:18→21:53)
[2021-08-27] MEDS: ZINC SULFATE 220 MG CAPSULE (FP) GT SCH (10:18)
[2021-08-27] MEDS: LABETALOL HCL 200 MG TABLET (FP) GT SCH ×2 (10:18→21:53)
[2021-08-27] MEDS: ASCORBIC ACID 500 MG/5 ML UNIT DOSE CUP PEG SCH (10:18)
[2021-08-27] MEDS: ACETAMINOPHEN 650 MG/20.3 ML ORAL SOLUTION (CUPS) GT PRN (10:26)
[2021-08-27 12:24] LABS: BASO % 0.4 % (0-2.0); EOS % 0.7 % (0-4.5); HEMATOCRIT 25.5 % (32.4-45.2); HEMOGLOBIN 8.3 GM/dL (10.7-15.3); LYMPH % 12.5 % (8-40); MCH 28.3 pg (25.7-33.7); MCHC 32.7 g/dl (32.0-36.0); MEAN CELL VOLUME 86.4 fl (80-96); MEAN PLT VOLUME 7.4 fl (7.5-11.1); MONO % 8.8 % (3.8-10.2); NEUT % 77.6 % (42.8-82.8); PLATELET COUNT 560 10^3/uL (134-434); RBC 2.95 M/mm3 (3.60-5.2); RDW 20.2 % (11.6-15.6); WHITE BLOOD COUNT 10.9 K/mm3 (4.0-10.0)
[2021-08-27 12:49] LABS: CHLORIDE 108 mmol/L (98-107); SODIUM 140 mmol/L (136-145)
[2021-08-27 13:01] LABS: ALBUMIN 1.2 g/dl (3.4-5.0); ANION GAP 6 MMOL/L (8-16); CALCIUM 9.3 mg/dL (8.5-10.1); CO2 26 mmol/L (21-32); GLUCOSE,RANDOM 178 mg/dL (74-106)
[2021-08-27 13:02] LABS: CREATININE 0.5 mg/dL (0.55-1.3); SGPT/ALT < 6 U/L (13-61)
[2021-08-27 13:05] LABS: ALK PHOS 144 U/L (45-117); BILIRUBIN,TOTAL 0.2 mg/dL (0.2-1); TOT PROT 5.5 g/dl (6.4-8.2)
[2021-08-27 13:13] LABS: SGOT/AST 15 U/L (15-37)
[2021-08-27] MEDS: COLLAGENASE CLOSTRIDIUM HIST. 30 GRAMS TUBE TP SCH (14:00)
[2021-08-27] MEDS: ATORVASTATIN CA 40 MG TABLET (FP) GT SCH (21:53)
[2021-08-28] MEDS: ACETAMINOPHEN 650 MG/20.3 ML ORAL SOLUTION (CUPS) GT PRN (00:24)
[2021-08-28] MEDS: INSULIN SLIDING SCALE (NOVOLOG) 1 VIAL SQ SCH ×4 (06:05→22:20)
[2021-08-28] MEDS: ACETYLCYSTEINE 20% 200MG/ML 4 ML VIAL *FOR ORAL / INH USE ONLY NEB SCH ×4 (07:49→20:54)
[2021-08-28] MEDS: ALBUTEROL SO4 0.083% IH SOL 2.5 MG/3 ML VIAL.NEB. NEB SCH ×4 (07:49→20:56)
[2021-08-28] MEDS: AMINO ACIDS/PROTEIN HYDROLYS 30 ML LIQUID.PKT PEG SCH ×2 (08:10→17:08)
[2021-08-28] MEDS: ZINC SULFATE 220 MG CAPSULE (FP) GT SCH (09:07)
[2021-08-28] MEDS: ENOXAPARIN NA (PORCINE) 40 MG/0.4 ML DISP.SYRIN SQ SCH (09:07)
[2021-08-28] MEDS: LABETALOL HCL 200 MG TABLET (FP) GT SCH ×2 (09:07→22:17)
[2021-08-28] MEDS: CLOPIDOGREL BISULFATE 75 MG TABLET (FP) GT SCH (09:07)
[2021-08-28] MEDS: hydrALAZINE HCL 50 MG TABLET (FP) GT SCH ×2 (09:07→22:17)
[2021-08-28] MEDS: FAMOTIDINE 40 MG/5 ML ORAL SUSPENSION NGT SCH ×2 (09:08→22:36)
[2021-08-28] MEDS: COLLAGENASE CLOSTRIDIUM HIST. 30 GRAMS TUBE TP SCH (09:08)
[2021-08-28] MEDS: ASCORBIC ACID 500 MG/5 ML UNIT DOSE CUP PEG SCH (09:08)
[2021-08-28 11:20] LABS: BASO % 0.4 % (0-2.0); EOS % 0.9 % (0-4.5); HEMOGLOBIN 8.4 GM/dL (10.7-15.3); MCH 27.8 pg (25.7-33.7); MCHC 32.3 g/dl (32.0-36.0); MEAN CELL VOLUME 86.1 fl (80-96); MEAN PLT VOLUME 7.4 fl (7.5-11.1); MONO % 9.6 % (3.8-10.2); NEUT % 77.1 % (42.8-82.8); PLATELET COUNT 592 10^3/uL (134-434); RBC 3.02 M/mm3 (3.60-5.2); RDW 20.3 % (11.6-15.6); WHITE BLOOD COUNT 10.6 K/mm3 (4.0-10.0)
[2021-08-28 11:26] LABS: CALCIUM 9.1 mg/dL (8.5-10.1)
[2021-08-28 11:28] LABS: ALBUMIN 1.2 g/dl (3.4-5.0); BLOOD UREA NITROGEN 23.1 mg/dL (7-18)
[2021-08-28 11:30] LABS: CREATININE 0.4 mg/dL (0.55-1.3)
[2021-08-28 11:31] LABS: BILIRUBIN,TOTAL 0.2 mg/dL (0.2-1)
[2021-08-28 11:33] LABS: TOT PROT 5.6 g/dl (6.4-8.2)
[2021-08-28] MEDS ORDERED: FUROSEMIDE 40 MG/4 ML INJECTABLE VIAL IVPUSH ONE (11:37)
[2021-08-28] MEDS: ATORVASTATIN CA 40 MG TABLET (FP) GT SCH (22:17)
[2021-08-29] MEDS: INSULIN SLIDING SCALE (NOVOLOG) 1 VIAL SQ SCH ×4 (06:03→21:41)
[2021-08-29] MEDS: ACETYLCYSTEINE 20% 200MG/ML 4 ML VIAL *FOR ORAL / INH USE ONLY NEB SCH ×4 (08:12→19:24)
[2021-08-29] MEDS: ALBUTEROL SO4 0.083% IH SOL 2.5 MG/3 ML VIAL.NEB. NEB SCH ×4 (08:13→19:24)
[2021-08-29] MEDS: COLLAGENASE CLOSTRIDIUM HIST. 30 GRAMS TUBE TP SCH (10:42)
[2021-08-29] MEDS: AMINO ACIDS/PROTEIN HYDROLYS 30 ML LIQUID.PKT PEG SCH ×2 (11:10→16:35)
[2021-08-29] MEDS: hydrALAZINE HCL 50 MG TABLET (FP) GT SCH ×2 (11:10→21:36)
[2021-08-29] MEDS: ZINC SULFATE 220 MG CAPSULE (FP) GT SCH (11:11)
[2021-08-29] MEDS: LABETALOL HCL 200 MG TABLET (FP) GT SCH ×2 (11:11→21:36)
[2021-08-29] MEDS: FAMOTIDINE 40 MG/5 ML ORAL SUSPENSION NGT SCH ×2 (11:13→21:36)
[2021-08-29] MEDS: CLOPIDOGREL BISULFATE 75 MG TABLET (FP) GT SCH (11:15)
[2021-08-29] MEDS: ASCORBIC ACID 500 MG/5 ML UNIT DOSE CUP PEG SCH (11:15)
[2021-08-29 12:08] LABS: SARS-CoV-2 NAA Not Detected (Not Detected)
[2021-08-29] MEDS: ATORVASTATIN CA 40 MG TABLET (FP) GT SCH (21:36)
[2021-08-30] MEDS: INSULIN SLIDING SCALE (NOVOLOG) 1 VIAL SQ SCH ×4 (05:59→21:27)
[2021-08-30] MEDS: ALBUTEROL SO4 0.083% IH SOL 2.5 MG/3 ML VIAL.NEB. NEB SCH ×4 (08:19→20:07)
[2021-08-30] MEDS: ACETYLCYSTEINE 20% 200MG/ML 4 ML VIAL *FOR ORAL / INH USE ONLY NEB SCH ×4 (08:19→20:00)
[2021-08-30] MEDS: AMINO ACIDS/PROTEIN HYDROLYS 30 ML LIQUID.PKT PEG SCH ×2 (09:07→17:39)
[2021-08-30 09:54] LABS: ALBUMIN 1.3 g/dl (3.4-5.0)
[2021-08-30 09:55] LABS: CALCIUM 8.7 mg/dL (8.5-10.1)
[2021-08-30 09:57] LABS: MAGNESIUM 1.8 mg/dL (1.8-2.4)
[2021-08-30 10:00] LABS: CREATININE 0.5 mg/dL (0.55-1.3)
[2021-08-30 10:01] LABS: TOT PROT 5.7 g/dl (6.4-8.2)
[2021-08-30 10:02] LABS: BILIRUBIN,TOTAL 0.2 mg/dL (0.2-1)
[2021-08-30] MEDS: hydrALAZINE HCL 50 MG TABLET (FP) GT SCH ×2 (10:20→21:25)
[2021-08-30] MEDS: ZINC SULFATE 220 MG CAPSULE (FP) GT SCH (10:21)
[2021-08-30] MEDS: LABETALOL HCL 200 MG TABLET (FP) GT SCH ×2 (10:22→21:26)
[2021-08-30] MEDS: FAMOTIDINE 40 MG/5 ML ORAL SUSPENSION NGT SCH ×2 (10:23→21:27)
[2021-08-30] MEDS: CLOPIDOGREL BISULFATE 75 MG TABLET (FP) GT SCH (10:24)
[2021-08-30] MEDS: ASCORBIC ACID 500 MG/5 ML UNIT DOSE CUP PEG SCH (10:26)
[2021-08-30] MEDS: COLLAGENASE CLOSTRIDIUM HIST. 30 GRAMS TUBE TP SCH (10:26)
[2021-08-30] MEDS: ATORVASTATIN CA 40 MG TABLET (FP) GT SCH (21:26)
[2021-08-31] MEDS: INSULIN SLIDING SCALE (NOVOLOG) 1 VIAL SQ SCH ×4 (06:33→21:29)
[2021-08-31] MEDS: AMINO ACIDS/PROTEIN HYDROLYS 30 ML LIQUID.PKT PEG SCH ×2 (07:45→17:11)
[2021-08-31] MEDS: ACETYLCYSTEINE 20% 200MG/ML 4 ML VIAL *FOR ORAL / INH USE ONLY NEB SCH ×4 (08:07→20:40)
[2021-08-31] MEDS: ALBUTEROL SO4 0.083% IH SOL 2.5 MG/3 ML VIAL.NEB. NEB SCH (08:08)
[2021-08-31] MEDS: LABETALOL HCL 200 MG TABLET (FP) GT SCH ×2 (10:30→21:27)
[2021-08-31] MEDS: FAMOTIDINE 40 MG/5 ML ORAL SUSPENSION NGT SCH ×2 (10:32→21:28)
[2021-08-31] MEDS: CLOPIDOGREL BISULFATE 75 MG TABLET (FP) GT SCH (10:32)
[2021-08-31] MEDS: hydrALAZINE HCL 50 MG TABLET (FP) GT SCH ×2 (10:32→21:27)
[2021-08-31] MEDS: ZINC SULFATE 220 MG CAPSULE (FP) GT SCH (10:32)
[2021-08-31] MEDS: COLLAGENASE CLOSTRIDIUM HIST. 30 GRAMS TUBE TP SCH (10:35)
[2021-08-31] MEDS: ASCORBIC ACID 500 MG/5 ML UNIT DOSE CUP PEG SCH (10:36)
[2021-08-31 10:43] LABS: HEMATOCRIT 24.6 % (32.4-45.2); HEMOGLOBIN 7.9 GM/dL (10.7-15.3); MCH 27.9 pg (25.7-33.7); MCHC 32.3 g/dl (32.0-36.0); MEAN CELL VOLUME 86.4 fl (80-96); MEAN PLT VOLUME 7.4 fl (7.5-11.1); PLATELET COUNT 526 10^3/uL (134-434); RBC 2.85 M/mm3 (3.60-5.2); RDW 20.5 % (11.6-15.6)
[2021-08-31 11:12] LABS: ALBUMIN 1.3 g/dl (3.4-5.0); BLOOD UREA NITROGEN 28.3 mg/dL (7-18); CALCIUM 8.9 mg/dL (8.5-10.1)
[2021-08-31 11:15] LABS: CREATININE 0.5 mg/dL (0.55-1.3)
[2021-08-31 11:17] LABS: BILIRUBIN,TOTAL 0.3 mg/dL (0.2-1); TOT PROT 5.8 g/dl (6.4-8.2)
[2021-08-31 12:09] LABS: SARS-CoV-2 NAA Not Detected (Not Detected)
[2021-08-31] MEDS: BANATROL PLUS POWDER PACKET PO SCH ×2 (14:20→21:28)
[2021-08-31] MEDS: ATORVASTATIN CA 40 MG TABLET (FP) GT SCH (21:27)
[2021-09-01] MEDS: ACETAMINOPHEN 650 MG/20.3 ML ORAL SOLUTION (CUPS) GT PRN (05:06)
[2021-09-01] MEDS: BANATROL PLUS POWDER PACKET PO SCH ×3 (05:08→22:28)
[2021-09-01] MEDS: INSULIN SLIDING SCALE (NOVOLOG) 1 VIAL SQ SCH ×4 (06:13→21:37)
[2021-09-01] MEDS: ACETYLCYSTEINE 20% 200MG/ML 4 ML VIAL *FOR ORAL / INH USE ONLY NEB SCH ×4 (08:52→20:10)
[2021-09-01] MEDS: LABETALOL HCL 200 MG TABLET (FP) GT SCH ×2 (09:53→22:28)
[2021-09-01] MEDS: AMINO ACIDS/PROTEIN HYDROLYS 30 ML LIQUID.PKT PEG SCH ×2 (09:53→18:10)
[2021-09-01] MEDS: hydrALAZINE HCL 50 MG TABLET (FP) GT SCH ×2 (09:53→22:28)
[2021-09-01] MEDS: ASCORBIC ACID 500 MG/5 ML UNIT DOSE CUP PEG SCH (09:54)
[2021-09-01] MEDS: CLOPIDOGREL BISULFATE 75 MG TABLET (FP) GT SCH (09:54)
[2021-09-01] MEDS: ZINC SULFATE 220 MG CAPSULE (FP) GT SCH (09:54)
[2021-09-01] MEDS: FAMOTIDINE 40 MG/5 ML ORAL SUSPENSION NGT SCH ×2 (09:54→22:28)
[2021-09-01] MEDS: COLLAGENASE CLOSTRIDIUM HIST. 30 GRAMS TUBE TP SCH (09:54)
[2021-09-01] MEDS ORDERED: DEXTROSE 50%-WATER 25 GM/50 ML DISP.SYRIN IVPUSH PRN (15:22)
[2021-09-01] MEDS: ATORVASTATIN CA 40 MG TABLET (FP) GT SCH (22:28)
[2021-09-02] MEDS: BANATROL PLUS POWDER PACKET PO SCH ×3 (06:39→22:02)
[2021-09-02] MEDS: INSULIN SLIDING SCALE (NOVOLOG) 1 VIAL SQ SCH ×4 (06:49→22:01)
[2021-09-02] MEDS: ACETYLCYSTEINE 20% 200MG/ML 4 ML VIAL *FOR ORAL / INH USE ONLY NEB SCH ×4 (07:13→21:04)
[2021-09-02 09:08] LABS: MCH 27.7 pg (25.7-33.7); MEAN CELL VOLUME 86.6 fl (80-96); MEAN PLT VOLUME 7.1 fl (7.5-11.1); PLATELET COUNT 427 10^3/uL (134-434); RBC 2.88 M/mm3 (3.60-5.2); RDW 20.5 % (11.6-15.6); WHITE BLOOD COUNT 11.7 K/mm3 (4.0-10.0)
[2021-09-02 09:27] LABS: CALCIUM 8.9 mg/dL (8.5-10.1)
[2021-09-02 09:31] LABS: CREATININE 0.4 mg/dL (0.55-1.3)
[2021-09-02] MEDS: CLOPIDOGREL BISULFATE 75 MG TABLET (FP) GT SCH (10:22)
[2021-09-02] MEDS: LABETALOL HCL 200 MG TABLET (FP) GT SCH ×2 (10:22→22:01)
[2021-09-02] MEDS: hydrALAZINE HCL 50 MG TABLET (FP) GT SCH ×2 (10:22→22:01)
[2021-09-02] MEDS: FAMOTIDINE 40 MG/5 ML ORAL SUSPENSION NGT SCH ×2 (10:22→22:01)
[2021-09-02] MEDS: COLLAGENASE CLOSTRIDIUM HIST. 30 GRAMS TUBE TP SCH (10:22)
[2021-09-02] MEDS: AMINO ACIDS/PROTEIN HYDROLYS 30 ML LIQUID.PKT PEG SCH ×2 (10:22→18:19)
[2021-09-02] MEDS: ASCORBIC ACID 500 MG/5 ML UNIT DOSE CUP PEG SCH (10:22)
[2021-09-02] MEDS: ZINC SULFATE 220 MG CAPSULE (FP) GT SCH (10:22)
[2021-09-02] MEDS: ATORVASTATIN CA 40 MG TABLET (FP) GT SCH (22:01)
[2021-09-03] MEDS: BANATROL PLUS POWDER PACKET PO SCH ×3 (06:06→22:16)
[2021-09-03] MEDS: INSULIN SLIDING SCALE (NOVOLOG) 1 VIAL SQ SCH ×3 (06:12→17:08)
[2021-09-03] MEDS: ALBUTEROL SO4 0.083% IH SOL 2.5 MG/3 ML VIAL.NEB. NEB SCH ×3 (08:00→20:33)
[2021-09-03] MEDS: ACETYLCYSTEINE 20% 200MG/ML 4 ML VIAL *FOR ORAL / INH USE ONLY NEB SCH ×3 (08:00→20:33)
[2021-09-03] MEDS: AMINO ACIDS/PROTEIN HYDROLYS 30 ML LIQUID.PKT PEG SCH ×2 (08:58→17:08)
[2021-09-03] MEDS: ZINC SULFATE 220 MG CAPSULE (FP) GT SCH (10:50)
[2021-09-03] MEDS: hydrALAZINE HCL 50 MG TABLET (FP) GT SCH ×2 (10:50→22:16)
[2021-09-03] MEDS: CLOPIDOGREL BISULFATE 75 MG TABLET (FP) GT SCH (10:50)
[2021-09-03] MEDS: FAMOTIDINE 40 MG/5 ML ORAL SUSPENSION NGT SCH ×2 (10:50→22:16)
[2021-09-03] MEDS: LABETALOL HCL 200 MG TABLET (FP) GT SCH ×2 (10:50→22:16)
[2021-09-03] MEDS: COLLAGENASE CLOSTRIDIUM HIST. 30 GRAMS TUBE TP SCH (10:51)
[2021-09-03] MEDS: ASCORBIC ACID 500 MG/5 ML UNIT DOSE CUP PEG SCH (10:51)
[2021-09-03] MEDS ORDERED: INSULIN (NOVOLOG) ASPART 100 UNITS/ML 10ML VIAL ONE (11:13)
[2021-09-03] MEDS: ACETAMINOPHEN 650 MG/20.3 ML ORAL SOLUTION (CUPS) GT PRN (17:08)
[2021-09-03] MEDS: ATORVASTATIN CA 40 MG TABLET (FP) GT SCH (22:16)
[2021-09-04 05:34] VITALS: TEMP 99.6
[2021-09-04] MEDS: BANATROL PLUS POWDER PACKET PO SCH (06:20)
[2021-09-04] MEDS: INSULIN SLIDING SCALE (NOVOLOG) 1 VIAL SQ SCH ×4 (06:39→16:44)
[2021-09-04] MEDS: ACETYLCYSTEINE 20% 200MG/ML 4 ML VIAL *FOR ORAL / INH USE ONLY NEB SCH ×3 (07:58→15:12)
[2021-09-04] MEDS: ALBUTEROL SO4 0.083% IH SOL 2.5 MG/3 ML VIAL.NEB. NEB SCH ×3 (07:58→15:12)
[2021-09-04] MEDS: ASCORBIC ACID 500 MG/5 ML UNIT DOSE CUP PEG SCH (10:44)
[2021-09-04] MEDS: AMINO ACIDS/PROTEIN HYDROLYS 30 ML LIQUID.PKT PEG SCH (10:44)
[2021-09-04] MEDS: FAMOTIDINE 40 MG/5 ML ORAL SUSPENSION NGT SCH (10:45)
[2021-09-04] MEDS: COLLAGENASE CLOSTRIDIUM HIST. 30 GRAMS TUBE TP SCH (10:45)
[2021-09-04] MEDS: ZINC SULFATE 220 MG CAPSULE (FP) GT SCH (10:45)
[2021-09-04] MEDS: hydrALAZINE HCL 50 MG TABLET (FP) GT SCH (10:45)
[2021-09-04] MEDS: LABETALOL HCL 200 MG TABLET (FP) GT SCH (10:45)
[2021-09-04] MEDS: CLOPIDOGREL BISULFATE 75 MG TABLET (FP) GT SCH (10:45)
[2021-09-04] MEDS ORDERED: INSULIN (NOVOLOG) ASPART 100 UNITS/ML 10ML VIAL ONE (11:09)
[2021-09-04 14:12] VITALS: BP 128/67; PULSE 92
== END 2021-09-04 18:17 | DRG 720 ==
LOC: JER 12:19 → JERBED 13:57 → JICU 22:13 → J4W 08-18 00:20 → J5S 08-21 14:19 → J6S 08-28 15:56
PROVIDERS: ADMIT Internal Medicine Pulmonary Disease; ATTEND Family Medicine
PROC: 5A1955Z Respiratory Ventilation, Greater than 96 Consecutive Hours (ICD-10-PCS; principal; 2021-08-06)
PROC: 0BH17EZ Insertion of Endotracheal Airway into Trachea, Via Natural or Artificial Opening (ICD-10-PCS; 2021-08-06)
PROC: 02HV33Z Insertion of Infusion Device into Superior Vena Cava, Percutaneous Approach (ICD-10-PCS; 2021-08-06)
PROC: 3E0G76Z Introduction of Nutritional Substance into Upper GI, Via Natural or Artificial Opening (ICD-10-PCS; 2021-08-06)
PROC: 5A1955Z Respiratory Ventilation, Greater than 96 Consecutive Hours (ICD-10-PCS; 2021-08-09)
PROC: 0BH17EZ Insertion of Endotracheal Airway into Trachea, Via Natural or Artificial Opening (ICD-10-PCS; 2021-08-09)
PROC: 30233N1 Transfusion of Nonautologous Red Blood Cells into Peripheral Vein, Percutaneous Approach (ICD-10-PCS; 2021-08-11)
DX: A41.9 Sepsis, unspecified organism (principal); E11.00 Type 2 diabetes mellitus with hyperosmolarity without nonketotic hyperglycemic-hyperosmolar coma (NKHHC); J69.0 Pneumonitis due to inhalation of food and vomit; J96.01 Acute respiratory failure with hypoxia; R53.2 Functional quadriplegia; N17.9 Acute kidney failure, unspecified; G93.41 Metabolic encephalopathy; R65.21 Severe sepsis with septic shock; L89.322 Pressure ulcer of left buttock, stage 2; L89.152 Pressure ulcer of sacral region, stage 2; I69.354 Hemiplegia and hemiparesis following cerebral infarction affecting left non-dominant side; E87.5 Hyperkalemia; Z93.1 Gastrostomy status; R64 Cachexia; E88.09 Other disorders of plasma-protein metabolism, not elsewhere classified; I10 Essential (primary) hypertension; E86.0 Dehydration; D69.6 Thrombocytopenia, unspecified; E78.5 Hyperlipidemia, unspecified; G30.9 Alzheimer's disease, unspecified; F02.80 Dementia in other diseases classified elsewhere, unspecified severity, without behavioral disturbance, psychotic disturbance, mood disturbance, and anxiety; N39.0 Urinary tract infection, site not specified; Z74.01 Bed confinement status; Z68.21 Body mass index [BMI] 21.0-21.9, adult; J98.11 Atelectasis; D63.8 Anemia in other chronic diseases classified elsewhere
CPT/HCPCS: 31500; 36415; 36430; 36600; 70450-TC; 71045-TC-FY; 71250-TC; 74018-TC-FY; 80048; 80053; 81003; 82010; 82272; 82550; 82553; 82728; 82803; 82945; 82962; 83540; 83550; 83605; 83735; 84100; 84133; 84300; 84436; 84443; 84479; 84484; 84540; 85025; 85027; 86850; 86870; 86900; 86901; 86902; 86922; 87040; 87070; 87077; 87086; 87186; 87205; 87804; 93005; 93010; 93306-TC; 94002; 94640; 99291; 99292; C9803; G0480; J1100; J1644; J3490; P9058; U0003; U0005